=== PATIENT | female | born 1990 | race Caucasian/White ===

== ENCOUNTER 2016-10-12 22:17 | Emergency (ER) | payer MEDICAID ==
[2016-10-12] MEDS ORDERED: Clindamycin Phosphate 900 MG in Sodium Chloride 0.9% 100 ML IV ONE (22:26)
--- NOTE | 2016-10-12 22:30 | EDM.PDOC ---
ED HPI Trauma - General Chief Complaint: Upper Extremity Injury/Pain Stated Complaint: RT HAND Time Seen by Provider: 10/12/16 22:27 Source: Reports: Patient History Limitations: Reports: No limitations - History of Present Illness INITIAL COMMENTS - FREE TEXT/NARRATIVE: 3 days h/o progressive worsening right hand swelling & redness. states taken clindamycin before without problems Allergies/ADRs: Allergies erythromycin lactobionate [From Erythrocin] Allergy (Verified 12/26/15 13:28) Hives Penicillins Allergy (Verified 12/26/15 13:28) Rash Home Medications: Ambulatory Orders Albuterol [Ventolin HFA] 1 puff INH ASDIRECTED PRN 04/17/14 [Confirmed 12/26/15] ClonazePAM [KlonoPIN] 1 mg PO BID 08/03/15 [Confirmed 12/26/15] FLUoxetine [PROzac] 20 mg PO DAILY 08/03/15 [Confirmed 12/26/15] Norgestimate-Ethinyl Estradiol [Tri-Previfem Tablet] 1 each PO DAILY 12/26/15 [ Confirmed 12/26/15] Past Medical History - Past Health History Medical/Surgical History: Denies Medical/Surgical History HEENT History: Reports: None Cardiovascular History: Reports: None Respiratory History: Reports: None Gastrointestinal History: Reports: None Other Gastrointestinal History: Laparoscopy, May 1970 Genitourinary History: Reports: None [employer] T[employer]ER History: Reports: None 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 History: Reports: None Neurological History: Reports: None Psychiatric History: Reports: Anxiety, Depression Endocrine/Metabolic History: Reports: None Hematologic History: Reports: None Immunologic History: Reports: None Oncologic (Cancer) History: Reports: None Dermatologic History: Reports: None - Infectious Disease History Infectious Disease History: Reports: None - Past Surgical History Other HEENT Surgeries/Procedures: adenoids removed Other Female Surgeries/Procedures: ovarian cysts Social & Family History - Family History Family Medical History: Noncontributory - Tobacco Use Smoking Status *Q: Current Every Day Smoker Years of Tobacco use: 9 Packs/Tins Daily: 0.5 Used Tobacco, but Quit: No Month Tobacco Last Used: feb Second Hand Smoke Exposure: Yes - Recreational Drug Use Recreational Drug Use: No - Living Situation & Occupation Living situation: Reports: with family Occupation: employed Review of Systems - Review of Systems Review Of Systems: ROS reveals no pertinent complaints other than HPI. Trauma Exam - Physical Exam Exam: See Below Exam Limited By: No limitations General Appearance: Reports: alert, WD/WN, no apparent distress Head: Reports: atraumatic Ears: Reports: hearing grossly normal Throat/Mouth: Reports: Normal voice, No airway compromise Neck: Reports: non-tender, full range of motion Respiratory Exam: Reports: no respiratory distress Cardiovascular: Reports: regular rate, rhythm GI/Abdominal: Reports: soft, non tender Extremities: Reports: pain with movement, tenderness, other (right hand cellulitis, no lymphangitis) Neurologic: Reports: no motor/sensory deficits, alert, oriented x 3 Skin: Reports: Normal color, Warm/dry Course - Vital Signs Last Recorded V/S: Last Vital Signs Temp 36.1 C 10/12/16 22:21 Pulse 120 H 10/12/16 22:21 Resp 19 10/12/16 22:21 BP 133/90 10/12/16 22:21 Pulse Ox 99 10/12/16 22:21 - Orders/Labs/Meds Meds: Medications Discontinued Medications Generic Name Dose Route Start Last Admin Trade Name Chrissy PRN Reason Stop Dose Admin Clindamycin Phosphate 900 mg/ 106 mls @ 200 mls/hr 10/12/16 22:26 10/12/16 22 :35 Sodium Chloride IV 10/12/16 22:57 200 mls/hr ONETIME ONE Administration Morphine Sulfate 2 mg 10/12/16 22:38 10/12/16 22:45 Morphine IVPUSH 10/12/16 22:39 2 mg ONETIME ONE Administration Ondansetron HCl 4 mg 10/12/16 22:38 10/12/16 22:45 Zofran IV 10/12/16 22:39 4 mg ONETIME ONE Administration Departure - Departure Time of Disposition: 23:14 Disposition: Home, Self-Care 01 Condition: good Clinical Impression: Cellulitis of right hand Instructions: Cellulitis, Adult, [id number] Forms: ED Department Discharge Additional Instructions: 1) elevate hand as much as possible next 48 hours 2) try ice or heat to area 3) recheck if not significantly improve in 48 hours rx given: clindamycin 150mg qid x 40 vicodin 5/325mg tid prn x 12
[2016-10-12 22:34] VITALS: BP 133/90
[2016-10-12] MEDS ORDERED: Ondansetron 4 MG/2 ML SDV IV ONE (22:38)
[2016-10-12] MEDS ORDERED: Morphine 2 MG/ML Syringe IVPUSH ONE (22:38)
[2016-10-12] MEDS ORDERED: Acetaminophen/HYDROcodone 325-10 MG Tab PO ONE (23:15)
[2016-10-12] MEDS ORDERED: Acetaminophen/HYDROcodone 325-10 MG Tab ONE (23:15)
== END 2016-10-12 23:23 | disposition home or self-care (01) ==
LOC: DL.ED 22:17
DX: L03.113 Cellulitis of right upper limb (principal); F41.9 Anxiety disorder, unspecified; F32.9 Major depressive disorder, single episode, unspecified; F17.210 Nicotine dependence, cigarettes, uncomplicated; Z88.1 Allergy status to other antibiotic agents; Z88.0 Allergy status to penicillin; Z79.899 Other long term (current) drug therapy
CPT/HCPCS: 96365; 96375; 99283; J2270; J2405; J7050; A9270-GY; S0077

== ENCOUNTER 2016-10-17 12:58 | Inpatient (IN) | payer MEDICAID, SELFPAY ==
[2016-10-17 15:19] LABS: CHLORIDE,CL 97 mmol/L (101-111); SODIUM,NA 132 mmol/L (135-145)
[2016-10-17] MEDS ORDERED: Lidocaine 2% Jelly 5 ML Tube TOP ONE (15:45)
[2016-10-17] MEDS ORDERED: Lidocaine 1% 30 ML SDV INJECT ONE (15:45)
[2016-10-17] MEDS ORDERED: Ondansetron 4 MG/2 ML SDV IV ONE (15:46)
[2016-10-17] MEDS ORDERED: HYDROmorphone 1 MG/ML Syringe IVPUSH ONE ×2 (15:46→16:29)
--- NOTE | 2016-10-17 16:18 | EDM.PDOC ---
Scribed by Savi Lin 10/17/16 1835 for Lewis Villeda MD ED HPI Trauma - General Chief Complaint: Upper Extremity Injury/Pain Stated Complaint: TOP OF RT HAND, SWOLLEN Time Seen by Provider: 10/17/16 14:30 Source: Reports: Patient, RN, RN notes reviewed History Limitations: Reports: No limitations - History of Present Illness INITIAL COMMENTS - FREE TEXT/NARRATIVE: Patient presents for redness and swelling of her right hand. She states she was seen earlier last week here in the ER for the same issue and received IV and oral antibiotics. She was discharged on clindamycin however her condition had worsened with swelling and spreading redness. She states she is unable to make a fist. She does admit to fever yesterday with a tmax of 102. Due to worsening symptoms she came back for further evaluation. Pain/Injury Location: Reports: upper extremity, right Associated Symptoms: Reports: no other symptoms Allergies/ADRs: Allergies erythromycin lactobionate [From Erythrocin] Allergy (Verified 12/26/15 13:28) Hives Penicillins Allergy (Verified 12/26/15 13:28) Rash Home Medications: Ambulatory Orders Albuterol [Ventolin HFA] 1 puff INH ASDIRECTED PRN 04/17/14 [Confirmed 12/26/15] ClonazePAM [KlonoPIN] 1 mg PO BID 08/03/15 [Confirmed 12/26/15] FLUoxetine [PROzac] 20 mg PO DAILY 08/03/15 [Confirmed 12/26/15] Norgestimate-Ethinyl Estradiol [Tri-Previfem Tablet] 1 each PO DAILY 12/26/15 [ Confirmed 12/26/15] Past Medical History - Past Health History Medical/Surgical History: Denies Medical/Surgical History HEENT History: Reports: None Cardiovascular History: Reports: None Respiratory History: Reports: None Gastrointestinal History: Reports: None Other Gastrointestinal History: Laparoscopy, May 1970 Genitourinary History: Reports: None [employer]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: 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 History: Reports: None Neurological History: Reports: None Psychiatric History: Reports: Anxiety, Depression Endocrine/Metabolic History: Reports: None Hematologic History: Reports: None Immunologic History: Reports: None Oncologic (Cancer) History: Reports: None Dermatologic History: Reports: None - Infectious Disease History Infectious Disease History: Reports: None - Past Surgical History Other HEENT Surgeries/Procedures: adenoids removed GI Surgical History: Reports: Other (see below) Other GI Surgeries/Procedures: laparoscopy Other Female Surgeries/Procedures: ovarian cysts Social & Family History - Family History Family Medical History: Noncontributory - Tobacco Use Smoking Status *Q: Current Every Day Smoker Years of Tobacco use: 10 Packs/Tins Daily: 0.5 Used Tobacco, but Quit: No Month Tobacco Last Used: sept Second Hand Smoke Exposure: Yes - Caffeine Use Caffeine Use: Reports: Coffee, Soda, Tea - Recreational Drug Use Recreational Drug Use: No - Living Situation & Occupation Living situation: Reports: with family Occupation: employed Review of Systems - Review of Systems Review Of Systems: See Below Constitutional: Reports: fever Eyes: Reports: no symptoms Ears: Reports: no symptoms Nose: Reports: no symptoms Mouth/Throat: Reports: no symptoms Respiratory: Reports: No Symptoms Cardiovascular: Reports: no symptoms GI/Abdominal: Reports: No symptoms Genitourinary: Reports: no symptoms 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: Reports: hand pain, joint swelling Skin: Reports: no symptoms Neurological: Reports: No Symptoms Psychiatric: Reports: no symptoms Trauma Exam - Physical Exam Exam: See Below Exam Limited By: No limitations General Appearance: Reports: alert, WD/WN, no apparent distress Head: Reports: atraumatic, normocephalic Eyes: bilateral eye: normal inspection Nose: Reports: normal inspection, normal mucousa, no blood Throat/Mouth: Reports: Normal inspection, Normal lips, Normal teeth, Normal gums , Normal oropharynx, Normal voice, No airway compromise Neck: Reports: non-tender, full range of motion, normal alignment, normal inspection Respiratory Exam: Reports: no respiratory distress, lungs clear, normal breath sounds Cardiovascular: Reports: normal peripheral pulses, regular rate, rhythm, no edema, no gallop, no JVD, no murmur, no rub GI/Abdominal: Reports: normal bowel sounds, soft, non tender, no organomegaly, no distention, no abnormal bruit, no mass Back: Reports: full range of motion, normal inspection, non-tender Extremities: Reports: pain with movement, tenderness, other (right hand shows 4cm x 4cm mass with surrounding erythema throughout the dorsal surface of the hand with pain to palation) Skin: Reports: Other (see extremity exam) ED TRAUMA EXTREMITY PROCEDURES - I&D Site: left hand Skin prep: chlorhexidine (hibiciens) Local anesthesia: Lidocaine: 1% plain Local anesthetic volume: 5cc Area incised with: 11 blade Drainage: purulent, large amount Probed to break up loculations: Yes Packed with: 1/4 in. iodoform Sterile dressinx4(s) Complications: No Progress/Comments: Culture obtained and sent to [facility]. Course - Vital Signs Last Recorded V/S: Last Vital Signs Temp 37.4 C 10/17/16 15:44 Pulse 92 10/17/16 15:44 Resp 18 10/17/16 15:44 BP 120/69 10/17/16 15:44 Pulse Ox 100 10/17/16 15:44 - Orders/Labs/Meds Orders: Active Orders 24 hr Category Date Time Status CULTURE BLOOD [BC] Stat Lab 10/17/16 14:52 Received CULTURE BLOOD [BC] Stat Lab 10/17/16 15:02 Received CULTURE WOUND + SMEAR [] Stat Lab 10/17/16 16:05 Uncollected Vancomycin [Vancocin] 1 gm Med 10/17/16 15:22 Active Sodium Chloride 0.9% [Normal Saline] 250 ml IV ONETIME Blood Culture x2 Reflex Set [OM.PC] Stat Oth 10/17/16 14:35 Ordered Medication Orders Vancomycin HCl 1 gm/ Sodium (Chloride) 250 mls @ 167 mls/hr IV ONETIME ONE Stop: 10/17/16 16:51 Last Admin: 10/17/16 15:49 Dose: 167 mls/hr Labs: Laboratory Tests 10/17/16 10/17/16 10/17/16 Range/Units 14:52 14:52 14:52 WBC 15.0 H (5.0-10.0) 10^3/uL RBC 4.98 (4.2-5.4) 10^6/uL Hgb 15.6 (12.0-16.0) g/dL Hct 45.3 (37.0-47.0) % MCV 91.0 (80-100) fL MCH 31.3 (27.0-34.0) pg MCHC 34.4 (33.0-35.0) g/dL Plt Count 254 (150-450) 10^3/uL Neut % (Auto) 72.0 (42.2-75.2) % Lymph % (Auto) 19.4 L (20.5-50.1) % [place] % (Auto) 6.1 (2-8) % Eos % (Auto) 2.3 (1.0-3.0) % Baso % (Auto) 0.2 (0.0-1.0) % Add Manual Diff Yes Neutrophils % (Manual) 69 % Band Neutrophils % 1 % Lymphocytes % (Manual) 22 % Monocytes % (Manual) 5 % Eosinophils % (Manual) 3 % ESR (0-20) mm/hr Sodium 132 L (135-145) mmol/L Potassium 4.0 (3.6-5.0) mmol/L Chloride 97 L (101-111) mmol/L Carbon Dioxide 28.0 (21.0-31.0) mmol/L Anion Gap 11.0 BUN 12 (7-18) mg/dL Creatinine 0.6 (0.6-1.3) mg/dL Est Cr Clr Drug Dosing TNP Estimated GFR (MDRD) > 60 BUN/Creatinine Ratio 20.00 Glucose 86 (74-105) mg/dL Lactic Acid 1.0 (0.5-2.2) mmol/L Calcium 9.2 (8.4-10.2) mg/dl Total Bilirubin 0.6 (0.2-1.0) mg/dL AST 22 (10-42) IU/L ALT 47 (10-60) IU/L Alkaline Phosphatase 56 (42-121) IU/L C-Reactive Protein (0.0-1.3) mg/dL Total Protein 8.2 (6.7-8.2) g/dl Albumin 4.0 (3.2-5.5) g/dl Globulin 4.2 Albumin/Globulin Ratio 0.95 10/17/16 10/17/16 Range/Units 14:52 14:52 WBC (5.0-10.0) 10^3/uL RBC (4.2-5.4) 10^6/uL Hgb (12.0-16.0) g/dL Hct (37.0-47.0) % MCV (80-100) fL MCH (27.0-34.0) pg MCHC (33.0-35.0) g/dL Plt Count (150-450) 10^3/uL Neut % (Auto) (42.2-75.2) % Lymph % (Auto) (20.5-50.1) % [place] % (Auto) (2-8) % Eos % (Auto) (1.0-3.0) % Baso % (Auto) (0.0-1.0) % Add Manual Diff Neutrophils % (Manual) % Band Neutrophils % % Lymphocytes % (Manual) % Monocytes % (Manual) % Eosinophils % (Manual) % ESR 24 H (0-20) mm/hr Sodium (135-145) mmol/L Potassium (3.6-5.0) mmol/L Chloride (101-111) mmol/L Carbon Dioxide (21.0-31.0) mmol/L Anion Gap BUN (7-18) mg/dL Creatinine (0.6-1.3) mg/dL Est Cr Clr Drug Dosing Estimated GFR (MDRD) BUN/Creatinine Ratio Glucose (74-105) mg/dL Lactic Acid (0.5-2.2) mmol/L Calcium (8.4-10.2) mg/dl Total Bilirubin (0.2-1.0) mg/dL AST (10-42) IU/L ALT (10-60) IU/L Alkaline Phosphatase (42-121) IU/L C-Reactive Protein 1.3 (0.0-1.3) mg/dL Total Protein (6.7-8.2) g/dl Albumin (3.2-5.5) g/dl Globulin Albumin/Globulin Ratio Meds: Medications Generic Name Dose Route Start Last Admin Trade Name Freq PRN Reason Stop Dose Admin Vancomycin HCl 1 gm/ Sodium 250 mls @ 167 mls/hr 10/17/16 15:22 10/17/16 15: 49 Chloride IV 10/17/16 16:51 167 mls/hr ONETIME ONE Administration Discontinued Medications Generic Name Dose Route Start Last Admin Trade Name Freq PRN Reason Stop Dose Admin Hydromorphone HCl 1 mg 10/17/16 15:46 10/17/16 15:52 Dilaudid IVPUSH 10/17/16 15:47 1 mg ONETIME ONE Administration Lidocaine HCl 30 ml 10/17/16 15:45 10/17/16 15:53 Xylocaine-Mpf 1% INJECT 10/17/16 15:46 30 ml ONETIME ONE Administration Lidocaine HCl 5 ml 10/17/16 15:45 10/17/16 15:54 Xylocaine 2% Jelly TOP 10/17/16 15:46 5 ml ONETIME ONE Administration Ondansetron HCl 4 mg 10/17/16 15:46 10/17/16 15:53 Zofran IV 10/17/16 15:47 4 mg ONETIME ONE Administration Departure - Departure Time of Disposition: 16:14 ((admit to Dr. Nolasco)) Disposition: Admitted As Inpatient 64 Condition: fair Clinical Impression: Cellulitis and abscess of hand Forms: ED Department Discharge I have read and agree with the documentation that has been completed regarding this visit. By signing this record, I attest that the documentation was completed in my physical presence and is an accurate record of the encounter.
[2016-10-17] MEDS ORDERED: Albuterol 6.7 GM Inhaler INH PRN (16:47)
[2016-10-17] MEDS ORDERED: Ibuprofen 400 MG Tab PO PRN (16:48)
--- NOTE | 2016-10-17 17:01 | PCM.HP ---
H&P History of Present Illness - General Date of Service: 10/17/16 Admit Problem/Dx: Admission Diagnosis/Problem Admission Diagnosis/Problem Cellulitis 26-year-old lady presented with a right upper extremity and swelling, redness She has very little past medical history but She thinks that his a few weeks First noticed these symptoms about 10 days ago. Was in the emergency room about a week ago. Was diagnosis cellulitis and was given IV antibiotic in the emergency room and discharged on oral clindamycin. The redness pain and swelling in the past 2 days the prior to admission has been worsening. This has been associated with a fever up to 102. - History of Present Illness Onset of Symptoms: Reports: gradual Duration of Symptoms: Reports: Day(s): Right Upper Hand Pain Score (Numeric/FACES): 7 - Related Data Allergies/Adverse Reactions: Allergies Allergy/AdvReac Type Severity Reaction Status Date / Time erythromycin lactobionate Allergy Hives Verified 12/26/15 13:28 [From Erythrocin] Penicillins Allergy Rash Verified 12/26/15 13:28 Home Medications: Home Meds Albuterol [Ventolin HFA] 1 puff INH ASDIRECTED PRN 04/17/14 [History] ClonazePAM [KlonoPIN] 1 mg PO BID 08/03/15 [History] FLUoxetine [PROzac] 20 mg PO DAILY 08/03/15 [History] Norgestimate-Ethinyl Estradiol [Tri-Previfem Tablet] 1 each PO DAILY 12/26/15 [ History] Past Medical History - Past Health History Medical/Surgical History: Denies Medical/Surgical History HEENT History: Reports: None Cardiovascular History: Reports: None Respiratory History: Reports: None Gastrointestinal History: Reports: None Other Gastrointestinal History: Laparoscopy, May 1970 Genitourinary History: Reports: 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: 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 History: Reports: None Neurological History: Reports: None Psychiatric History: Reports: Anxiety, Depression Endocrine/Metabolic History: Reports: None Hematologic History: Reports: None Immunologic History: Reports: None Oncologic (Cancer) History: Reports: None Dermatologic History: Reports: None - Infectious Disease History Infectious Disease History: Reports: None - Past Surgical History Other HEENT Surgeries/Procedures: adenoids removed GI Surgical History: Reports: Other (see below) Other GI Surgeries/Procedures: laparoscopy Other Female Surgeries/Procedures: ovarian cysts Social & Family History - Family History Family Medical History: Noncontributory - Tobacco Use Smoking Status *Q: Current Every Day Smoker Years of Tobacco use: 10 Packs/Tins Daily: 0.5 Used Tobacco, but Quit: No Month Tobacco Last Used: sept Second Hand Smoke Exposure: Yes - Caffeine Use Caffeine Use: Reports: Coffee, Soda, Tea - Recreational Drug Use Recreational Drug Use: No - Living Situation & Occupation Living situation: Reports: with family Occupation: employed H&P Review of Systems - Review of Systems: Review Of Systems: See Below General: Reports: fever, chills Pulmonary: Denies: Shortness of Breath Cardiovascular: Denies: chest pain Gastrointestinal: Denies: Abdominal pain Psychiatric: Reports: other (trying to quit smoking) Exam - Exam Exam: See Below - Vital Signs Vital Signs: Last Vital Signs Temp 37.4 C 10/17/16 15:44 Pulse 92 10/17/16 15:44 Resp 18 10/17/16 15:44 BP 120/69 10/17/16 15:44 Pulse Ox 100 10/17/16 15:44 Weight: 73.936 kg - Exam General: alert, oriented Neck: supple Lungs: Clear to auscultation, Normal respiratory effort Abdomen: normal bowel sounds, soft, other (obese) Extremities: other (redness on the dorsum of the right hand) Skin: warm, other (right hand abscess with packing) Neuro Extensive - Mental Status: alert, oriented x3, normal mood/affect Psychiatric: alert, normal affect, normal mood - Patient Data Result Diagrams: 10/17/16 14:52 10/17/16 14:52 *Q Meaningful Use (ADM) - VTE *Q VTE Criteria *Q: - Stroke *Q Stroke Criteria *Q: - AMI *Q AMI Criteria *Q: - Problem List (1) SNOMED Code(s): 96410970 ICD Code: Z33.1 - STATE, INCIDENTAL Status: Acute Current Visit : Yes (2) Cellulitis and abscess of hand SNOMED Code(s): 895880269, 781704227 ICD Code: L03.119 - CELLULITIS OF UNSPECIFIED PART OF LIMB; L02.519 - CUTANEOUS ABSCESS OF UNSPECIFIED HAND Status: Acute Current Visit: Yes Problem List Initiated/Reviewed/Updated: Yes Orders Last 24hrs: Active Orders 24 hr Category Date Time Status Patient Status [ADT] Routine ADT 10/17/16 16:48 Ordered Oxygen Therapy [RC] PRN Care 10/17/16 16:48 Ordered Peripheral IV Care [RC] . DIRECTED Care 10/17/16 16:51 Ordered Up With Assistance [RC] ASDIRECTED Care 10/17/16 16:48 Ordered VTE/DVT Education [RC] PER UNIT ROUTINE Care 10/17/16 16:48 Ordered Vital Signs [RC] Q4H Care 10/17/16 16:48 Ordered Regular Diet [DIET] Diet 10/17/16 Dinner Ordered BASIC METABOLIC PANEL,BMP [CHEM] AM Lab 10/18/16 05:15 Ordered CBC WITH AUTO DIFF [HEME] AM Lab 10/18/16 05:15 Ordered Acetaminophen [Tylenol] Med 10/17/16 16:48 Ordered 650 mg PO Q4H PRN Albuterol [Proventil HFA] Med 10/17/16 16:47 Ordered 1 puff INH ASDIRECTED PRN Ibuprofen [Motrin] Med 10/17/16 16:48 Ordered 400 mg PO Q6H PRN Morphine Med 10/17/16 16:46 Ordered 1 mg IVPUSH Q4H PRN Sodium Chloride 0.9% [Saline Flush] Med 10/17/16 16:48 Ordered 10 ml FLUSH ASDIRECTED PRN Vancomycin Pharmacy to Dose [Pharmacy to Dose - Med 10/17/16 17:00 Ordered Vancomycin] 1 dose .XX ASDIRECTED Vancomycin Pharmacy to Dose [Pharmacy to Dose - Med 10/17/16 17:00 Ordered Vancomycin] 1 dose .XX ASDIRECTED Peripheral IV Insertion Adult [OM.PC] Routine Oth 10/17/16 16:48 Ordered Saline Lock Insert [OM.PC] Routine Oth 10/17/16 16:48 Ordered Resuscitation Status Routine Resus Stat 10/17/16 16:48 Ordered Medication Orders Acetaminophen (Tylenol) 650 mg PO Q4H PRN PRN Reason: Pain (Mild 1-3)/fever Albuterol (Proventil Hfa) 0 gm INH ASDIRECTED PRN PRN Reason: Dyspnea Ibuprofen (Motrin) 400 mg PO Q6H PRN PRN Reason: Pain (mild 1-3) Morphine Sulfate (Morphine) 1 mg IVPUSH Q4H PRN PRN Reason: severe pain Sodium Chloride (Saline Flush) 10 ml FLUSH ASDIRECTED PRN PRN Reason: Keep Vein Open Vancomycin HCl (Pharmacy To Dose - Vancomycin) 1 dose .XX ASDIRECTED [facility] Vancomycin HCl (Pharmacy To Dose - Vancomycin) 1 dose .XX ASDIRECTED [facility] Assessment/Plan Comment:: 1. cellulitis and abscess of the right hand The abscess has been opened up in the emergency room We'll pack the wound daily wound culture and blood culture is pending The patient failed out patient oral antibiotic therapy Will admit to the hospital and treat with IV vancomycin pain control will be with Tylenol, Motrin, IV morphine 2. Try to avoid harmful medications 3.smoking cessation was discussed 4. hyponatremia Mild Will follow 5. DVT prophylaxis will be mobilization and SCDs Discussed with the emergency room provider resident Dr. Awad
[2016-10-17] MEDS: Morphine 2 MG/ML Syringe IVPUSH PRN ×2 (18:13→22:33)
[2016-10-18] MEDS: Morphine 2 MG/ML Syringe IVPUSH PRN ×2 (02:52→09:46)
[2016-10-18 06:21] LABS: CHLORIDE,CL 101 mmol/L (101-111); SODIUM,NA 135 mmol/L (135-145)
[2016-10-18] MEDS: Sodium Chloride 0.9% 10 ML Syringe FLUSH PRN ×3 (08:03→16:11)
--- NOTE | 2016-10-18 10:10 | PCM.PN ---
- General Info Date of Service: 10/18/16 Subjective Update: continues to have moderate to severepain in the right hand better with pain medications (morphine), worse with touch - Review of Systems General: Denies: Fever Pulmonary: Denies: shortness of breath Cardiovascular: Denies: Chest Pain Gastrointestinal: Denies: Abdominal pain - Patient Data Vitals - most recent: Last Vital Signs Temp 36.4 C 10/18/16 07:00 Pulse 77 10/18/16 07:00 Resp 20 10/18/16 07:00 BP 107/63 10/18/16 07:00 Pulse Ox 99 10/18/16 07:00 Weight - most recent: 73.936 kg I&O - last 24 hours: Intake & Output 10/17/16 10/18/16 10/18/16 22:59 06:59 14:59 Intake Total 500 1019 252 Balance 500 1019 252 Lab Results last 24 hrs: Laboratory Results - last 24 hr 10/18/16 10/18/16 Range/Units 05:35 05:35 WBC 11.3 H (5.0-10.0) 10^3/uL RBC 4.34 (4.2-5.4) 10^6/uL Hgb 13.6 (12.0-16.0) g/dL Hct 40.1 (37.0-47.0) % MCV 92.4 (80-100) fL MCH 31.3 (27.0-34.0) pg MCHC 33.9 (33.0-35.0) g/dL Plt Count 206 (150-450) 10^3/uL Neut % (Auto) 60.9 (42.2-75.2) % Lymph % (Auto) 27.7 (20.5-50.1) % [place] % (Auto) 7.4 (2-8) % Eos % (Auto) 3.7 H (1.0-3.0) % Baso % (Auto) 0.3 (0.0-1.0) % Sodium 135 (135-145) mmol/L Potassium 4.1 (3.6-5.0) mmol/L Chloride 101 (101-111) mmol/L Carbon Dioxide 28.0 (21.0-31.0) mmol/L Anion Gap 10.1 BUN 10 (7-18) mg/dL Creatinine 0.6 (0.6-1.3) mg/dL Est Cr Clr Drug Dosing TNP Estimated GFR (MDRD) > 60 Glucose 87 (74-105) mg/dL Calcium 8.4 (8.4-10.2) mg/dl Med Orders - Current: Current Medications Acetaminophen (Tylenol) 650 mg PO Q4H PRN PRN Reason: Pain (Mild 1-3)/fever Albuterol (Proventil Hfa) 0 gm INH ASDIRECTED PRN PRN Reason: Dyspnea Vancomycin HCl 1 gm/ Sodium (Chloride) 250 mls @ 167 mls/hr IV Q8H [facility] Last Admin: 10/18/16 08:03 Dose: 167 mls/hr Morphine Sulfate (Morphine) 1 mg IVPUSH Q4H PRN PRN Reason: severe pain Last Admin: 10/18/16 09:46 Dose: 1 mg Sodium Chloride (Saline Flush) 10 ml FLUSH ASDIRECTED PRN PRN Reason: Keep Vein Open Last Admin: 10/18/16 09:49 Dose: 10 ml Vancomycin HCl (Pharmacy To Dose - Vancomycin) 1 dose .XX ASDIRECTED [facility] Discontinued Medications Hydromorphone HCl (Dilaudid) 1 mg IVPUSH ONETIME ONE Stop: 10/17/16 15:47 Last Admin: 10/17/16 15:52 Dose: 1 mg Hydromorphone HCl (Dilaudid) 1 mg IVPUSH ONETIME ONE Stop: 10/17/16 16:30 Last Admin: 10/17/16 16:34 Dose: 1 mg Vancomycin HCl 1 gm/ Sodium (Chloride) 250 mls @ 167 mls/hr IV ONETIME ONE Stop: 10/17/16 16:51 Last Admin: 10/17/16 15:49 Dose: 167 mls/hr Ibuprofen (Motrin) 400 mg PO Q6H PRN PRN Reason: Pain (mild 1-3) Last Admin: 10/17/16 18:14 Dose: 400 mg Lidocaine HCl (Xylocaine-Mpf 1%) 30 ml INJECT ONETIME ONE Stop: 10/17/16 15:46 Last Admin: 10/17/16 15:53 Dose: 30 ml Lidocaine HCl (Xylocaine 2% Jelly) 5 ml TOP ONETIME ONE Stop: 10/17/16 15:46 Last Admin: 10/17/16 15:54 Dose: 5 ml Ondansetron HCl (Zofran) 4 mg IV ONETIME ONE Stop: 10/17/16 15:47 Last Admin: 10/17/16 15:53 Dose: 4 mg Vancomycin HCl (Pharmacy To Dose - Vancomycin) 1 dose .XX ASDIRECTED [facility] - Exam General: alert, oriented Neck: supple Lungs: Clear to auscultation, Normal respiratory effort Cardiovascular: Regular Rate, Regular Rhythm Abdomen: bowel sounds present, soft, no tenderness, no distension Extremities: no edema Skin: other (right upper extremity dorsal surface with less erythema, abscess with packing) Psy/Mental Status: alert, normal affect, normal mood - Problem List & Annotations (1) SNOMED Code(s): 23057448 Code(s): Z33.1 - STATE, INCIDENTAL Status: Acute Current Visit: Yes Qualifiers: Weeks of gestation: less than 8 weeks Qualified Code(s): Z3A.01 - Less than 8 weeks gestation of (2) Cellulitis and abscess of hand SNOMED Code(s): 405640742, 744461450 Code(s): L03.119 - CELLULITIS OF UNSPECIFIED PART OF LIMB; L02.519 - CUTANEOUS ABSCESS OF UNSPECIFIED HAND Status: Acute Current Visit: Yes - Problem List Review Problem List Initiated/Reviewed/Updated: Yes - My Orders Last 24 Hours: My Active Orders 10/17/16 16:46 Morphine 1 mg IVPUSH Q4H PRN 10/17/16 16:47 Albuterol [Proventil HFA] 0 gm INH ASDIRECTED PRN 10/17/16 16:48 Patient Status [ADT] Routine Oxygen Therapy [RC] PRN Up With Assistance [RC] ASDIRECTED VTE/DVT Education [RC] PER UNIT ROUTINE Vital Signs [RC] Q4H Acetaminophen [Tylenol] 650 mg PO Q4H PRN Sodium Chloride 0.9% [Saline Flush] 10 ml FLUSH ASDIRECTED PRN Peripheral IV Insertion Adult [OM.PC] Routine Saline Lock Insert [OM.PC] Routine Resuscitation Status Routine 10/17/16 16:51 Peripheral IV Care [RC] 10/17/16 17:00 Vancomycin Pharmacy to Dose [Pharmacy to Dose - Vancomycin] 1 dose .XX ASDIRECTED 10/17/16 17:04 Communication Order [RC] 10/17/16 Dinner Regular Diet [DIET] - Plan Plan:: 1. cellulitis and abscess of the right hand The abscess has been opened up in the emergency room We'll pack the wound daily wound culture and blood culture is pending Gram stain showed Gram pos Cocci The patient failed outpatient oral antibiotic therapy with clindamycin continue to treat with IV vancomycin pain control will be with Tylenol, IV morphine, oxycodone 2. Try to avoid harmful medications 3.smoking cessation was discussed 4. hyponatremia Mild Will follow 5. DVT prophylaxis will be mobilization and SCDs
[2016-10-18] MEDS: Acetaminophen 325 MG Tab PO PRN ×2 (12:21→17:58)
[2016-10-18] MEDS: oxyCODONE 5 MG Tab PO PRN ×2 (15:07→21:20)
[2016-10-19] MEDS ORDERED: Vancomycin 250 MG in Sodium Chloride 0.9% 100 ML IV ONE (00:15)
[2016-10-19] MEDS: Acetaminophen 325 MG Tab PO PRN ×3 (01:02→22:48)
[2016-10-19] MEDS: Morphine 2 MG/ML Syringe IVPUSH PRN ×2 (01:31→18:40)
[2016-10-19] MEDS: Sodium Chloride 0.9% 10 ML Syringe FLUSH PRN ×5 (01:32→23:31)
[2016-10-19 07:13] LABS: CHLORIDE,CL 102 mmol/L (101-111); SODIUM,NA 135 mmol/L (135-145)
[2016-10-19] MEDS: oxyCODONE 5 MG Tab PO PRN ×3 (07:44→20:47)
--- NOTE | 2016-10-19 14:24 | PCM.PN ---
- General Info Date of Service: 10/19/16 Admission Dx/Problem (Free Text): Admission Diagnosis/Problem Admission Diagnosis/Problem right hand abscess and cellulitis Subjective Update: patient states that today she is feeling better. Her right hand swelling and redness improved. She still having hand pain. She denies fever or chills since yesterday. She denies nausea, vomiting, headache, chest pain, shortness of breath, swelling in the legs, abdomen pain pulmonary symptoms, or any other symptoms. She denies history of IV drug abuse but she is known for meth abuse. - Patient Data Vitals - most recent: Last Vital Signs Temp 36.2 C 10/19/16 11:46 Pulse 69 10/19/16 11:46 Resp 20 10/19/16 11:46 BP 99/54 L 10/19/16 11:46 Pulse Ox 100 10/19/16 11:46 Weight - most recent: 73.936 kg I&O - last 24 hours: Intake & Output 10/18/16 10/19/16 10/19/16 22:59 06:59 14:59 Intake Total 2010 251 Balance 2010 251 Lab Results last 24 hrs: Laboratory Results - last 24 hr 10/18/16 10/19/16 10/19/16 Range/Units 23:25 06:40 06:40 WBC 8.8 (5.0-10.0) 10^3/uL RBC 4.67 (4.2-5.4) 10^6/uL Hgb 14.6 (12.0-16.0) g/dL Hct 42.5 (37.0-47.0) % MCV 91.0 (80-100) fL MCH 31.3 (27.0-34.0) pg MCHC 34.4 (33.0-35.0) g/dL Plt Count 223 (150-450) 10^3/uL Neut % (Auto) 50.4 (42.2-75.2) % Lymph % (Auto) 37.1 (20.5-50.1) % [place] % (Auto) 6.6 (2-8) % Eos % (Auto) 5.6 H (1.0-3.0) % Baso % (Auto) 0.3 (0.0-1.0) % Add Manual Diff Yes Neutrophils % (Manual) 45 % Lymphocytes % (Manual) 46 % Monocytes % (Manual) 5 % Eosinophils % (Manual) 4 % Sodium 135 (135-145) mmol/L Potassium 4.0 (3.6-5.0) mmol/L Chloride 102 (101-111) mmol/L Carbon Dioxide 27.0 (21.0-31.0) mmol/L Anion Gap 10.0 BUN 9 (7-18) mg/dL Creatinine 0.6 (0.6-1.3) mg/dL Est Cr Clr Drug Dosing TNP Estimated GFR (MDRD) > 60 Glucose 87 (74-105) mg/dL Calcium 8.9 (8.4-10.2) mg/dl Vancomycin Trough 9.3 L (10-15) ug/ml Med Orders - Current: Current Medications Acetaminophen (Tylenol) 650 mg PO Q4H PRN PRN Reason: Pain (Mild 1-3)/fever Last Admin: 10/19/16 01:02 Dose: 650 mg Albuterol (Proventil Hfa) 0 gm INH ASDIRECTED PRN PRN Reason: Dyspnea Vancomycin HCl 1.25 gm/ Sodium (Chloride) 250 mls @ 166.667 mls/hr IV Q8H [facility] Last Admin: 10/19/16 08:05 Dose: 166.667 mls/hr Morphine Sulfate (Morphine) 1 mg IVPUSH Q4H PRN PRN Reason: severe pain Last Admin: 10/19/16 01:31 Dose: 1 mg Oxycodone HCl (Oxycodone) 5 mg PO Q6H PRN PRN Reason: severe pain Last Admin: 10/19/16 07:44 Dose: 5 mg Sodium Chloride (Saline Flush) 10 ml FLUSH ASDIRECTED PRN PRN Reason: Keep Vein Open Last Admin: 10/19/16 08:10 Dose: 10 ml Vancomycin HCl (Pharmacy To Dose - Vancomycin) 1 dose .XX ASDIRECTED [facility] Discontinued Medications Hydromorphone HCl (Dilaudid) 1 mg IVPUSH ONETIME ONE Stop: 10/17/16 15:47 Last Admin: 10/17/16 15:52 Dose: 1 mg Hydromorphone HCl (Dilaudid) 1 mg IVPUSH ONETIME ONE Stop: 10/17/16 16:30 Last Admin: 10/17/16 16:34 Dose: 1 mg Vancomycin HCl 1 gm/ Sodium (Chloride) 250 mls @ 167 mls/hr IV ONETIME ONE Stop: 10/17/16 16:51 Last Admin: 10/17/16 15:49 Dose: 167 mls/hr Vancomycin HCl 1 gm/ Sodium (Chloride) 250 mls @ 167 mls/hr IV Q8H [facility] Stop: 10/19/16 02:00 Last Admin: 10/19/16 01:30 Dose: 167 mls/hr Vancomycin HCl 250 mg/ Sodium (Chloride) 100 mls @ 100 mls/hr IV ONETIME ONE Stop: 10/19/16 01:14 Last Admin: 10/19/16 01:30 Dose: 100 mls/hr Ibuprofen (Motrin) 400 mg PO Q6H PRN PRN Reason: Pain (mild 1-3) Last Admin: 10/17/16 18:14 Dose: 400 mg Lidocaine HCl (Xylocaine-Mpf 1%) 30 ml INJECT ONETIME ONE Stop: 10/17/16 15:46 Last Admin: 10/17/16 15:53 Dose: 30 ml Lidocaine HCl (Xylocaine 2% Jelly) 5 ml TOP ONETIME ONE Stop: 10/17/16 15:46 Last Admin: 10/17/16 15:54 Dose: 5 ml Ondansetron HCl (Zofran) 4 mg IV ONETIME ONE Stop: 10/17/16 15:47 Last Admin: 10/17/16 15:53 Dose: 4 mg Vancomycin HCl (Pharmacy To Dose - Vancomycin) 1 dose .XX ASDIRECTED [facility] - Exam General: alert, oriented, cooperative, no acute distress HEENT: Pupils equal, Pupils reactive, EOMI, Mucous membr. moist/pink Neck: supple, trachea midline, no JVD Lungs: Clear to auscultation, Normal respiratory effort. No: Crackles, Rales, Rhonchi, Rub, Stridor, Wheezing Cardiovascular: Regular Rate, Regular Rhythm. No: Murmurs, Gallops, Rubs Abdomen: bowel sounds present, soft, no tenderness, no distension Extremities: normal pulses, no tenderness/swelling, no clubbing, no cyanosis Skin: other (right hand dorsal swelling and tenderness are appreciated. The dressing has some dry drainage on it.) Neurological: no new focal deficit, normal speech, normal tone Psy/Mental Status: alert, normal affect, normal mood. No: suicidal ideation, homicidal ideation, hallucinations - Problem List Review Problem List Initiated/Reviewed/Updated: Yes - My Orders Last 24 Hours: My Active Orders 10/19/16 14:15 Hand 2V Rt [CR] Routine 10/20/16 05:11 BASIC METABOLIC PANEL,BMP [CHEM] AM CBC WITH AUTO DIFF [HEME] AM CRP [C-REACTIVE PROTEIN] [CHEM] AM - Plan Plan:: 1. cellulitis and abscess of the right hand, status post I&D in the emergency room The patient failed outpatient oral antibiotic therapy with clindamycin Gram stain showed moderate gram positive cocci in chains and few gram negative rods -blood culture is pending -continue to repack the wound daily -continue vancomycin pain control will be with Tylenol, IV morphine, oxycodone 2. Try to avoid harmful medications she was advised to followup with primary care provider for care 3.tobacco abuse smoking cessation was discussed 4. mild hyponatremia, resolved 5.drug abuse She was counseled to stop and abusing drugs and seek outpatient counseling DVT prophylaxis will be mobilization and SCDs
--- NOTE | 2016-10-19 15:49 | CR ---
CLINICAL HISTORY: 26-year-old female with history of drug abuse and "abscess" right hand (one week). INTERPRETATION: No sign of foreign body or inflammatory periostitis. No bony erosions. Mild soft tissue swelling dorsum of the hand. No sign of right hand or wrist fracture/dislocation.
[2016-10-19] MEDS: Cephalexin 500 MG Cap PO SCH ×2 (17:19→23:30)
[2016-10-20] MEDS: Morphine 2 MG/ML Syringe IVPUSH PRN (00:11)
[2016-10-20] MEDS: Cephalexin 500 MG Cap PO SCH ×2 (06:37→13:04)
[2016-10-20] MEDS: oxyCODONE 5 MG Tab PO PRN (06:41)
[2016-10-20 08:18] LABS: CHLORIDE,CL 99 mmol/L (101-111); SODIUM,NA 133 mmol/L (135-145)
[2016-10-20] MEDS: Sodium Chloride 0.9% 10 ML Syringe FLUSH PRN (08:56)
--- NOTE | 2016-10-20 09:34 | PCM.DCSUM1 ---
Discharge Summary - Hospital Course Free Text/Narrative:: 26-year-old female with history of her meth abuse presented with a right hand swelling, redness, and pain. she admitted being and she thinks that it has been few weeks since she became . First noticed the hand symptoms about 10 days prior to admission. she was in the emergency room about attending ago and diagnosed with cellulitis and given IV antibiotic in the emergency room and discharged on oral clindamycin. The redness, pain and swelling got worse so she came back to the emergency room. she reported having fever up to 102. on admission her WBC were 15 without left shift.lactic acid was normal. CRP was normal. in the emergency room she had I&D and wound culture was sent. She was started on IV vancomycin and had daily packing and dressing change. And gradually improved. X-ray of the hand was done and did not show bone infection per radiology report. Blood culture had no gross for 2 days. Gram stain showed moderate gram-positive cocci in chains and a few gram-negative rods. However wound culture showed heavy growth gram-positive rods resembling Corynebacterium and viridans strep and no farther work up done. I counseled this and wishes to see specialist Dr. Jorge and recommended stopping vancomycin and starting oral Keflex. He will follow up with patient. She was advised to followup with primary care provider for check and for her hand infection as soon as possible.she was also counseled about stopping illicit drugs usage and educated about the effect on her . patient verbalized understanding and agreed with the plan - Discharge Data Discharge Date: 10/20/16 Discharge Disposition: Home, Self-Care 01 Condition: Good - Discharge Diagnosis/Problem(s) (1) Cellulitis and abscess of hand SNOMED Code(s): 914922889, 754932881 ICD Code: L03.119 - CELLULITIS OF UNSPECIFIED PART OF LIMB; L02.519 - CUTANEOUS ABSCESS OF UNSPECIFIED HAND Status: Acute Current Visit: Yes (2) SNOMED Code(s): 96265391 ICD Code: Z33.1 - STATE, INCIDENTAL Status: Acute Current Visit : Yes Qualifiers: Weeks of gestation: less than 8 weeks Qualified Code(s): Z3A.01 - Less than 8 weeks gestation of - Patient Instructions Diet: Heart Healthy Diet Activity: As Tolerated Wound/Incision Care: Keep Operative Site/Wound Site Clean and Dry, Change Dressing Daily Notify Provider of: Fever, Swelling and Redness, Drainage, Nausea and/or Vomiting - Discharge Plan Prescriptions/Med Rec: Cephalexin [IJD: Cephalexin] 500 mg PO Q6HR 10 Days Home Medications: Home Meds Albuterol [Ventolin HFA] 1 puff INH Q4HR PRN 04/17/14 [History] FLUoxetine [PROzac] 40 mg PO DAILY 08/03/15 [History] Acetaminophen 650 mg PO Q6H 10/17/16 [History] Vits #93/Iron Fum/FA [ Formula Tablet] 1 each PO DAILY [History] Cephalexin [IJD: Cephalexin] 500 mg PO Q6HR 10 Days 10/20/16 [Rx] Forms: ED Department Discharge Referrals: PCP,None [Primary Care Provider] - 10/22/16 - General Info Date of Service: 10/20/16 Admission Dx/Problem (Free Text: Admission Diagnosis/Problem Admission Diagnosis/Problem right hand abscess and cellulitis - Review of Systems General: Reports: No Symptoms HEENT: Reports: no symptoms Pulmonary: Reports: no symptoms Cardiovascular: Reports: No Symptoms Gastrointestinal: Reports: No symptoms Genitourinary: Reports: no symptoms 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: Reports: no symptoms Skin: Reports: no symptoms (except right hand swelling, redness, pain which markedly improved) Neurological: Reports: No Symptoms Psychiatric: Reports: no symptoms - Patient Data Vitals - Most Recent: Last Vital Signs Temp 36.6 C 10/20/16 07:46 Pulse 72 10/20/16 00:00 Resp 18 10/20/16 07:46 BP 97/61 10/20/16 07:46 Pulse Ox 99 10/20/16 07:46 Weight - Most Recent: 73.936 kg I&O - Last 24 hours: Intake & Output 10/19/16 10/20/16 10/20/16 22:59 06:59 14:59 Intake Total 5200 850 Balance 5200 850 Lab Results - Last 24 hrs: Laboratory Results - last 24 hr 10/20/16 10/20/16 10/20/16 Range/Units 07:45 07:45 07:45 WBC 10.0 (5.0-10.0) 10^3/uL RBC 4.60 (4.2-5.4) 10^6/uL Hgb 14.4 (12.0-16.0) g/dL Hct 41.7 (37.0-47.0) % MCV 90.7 (80-100) fL MCH 31.3 (27.0-34.0) pg MCHC 34.5 (33.0-35.0) g/dL Plt Count 249 (150-450) 10^3/uL Neut % (Auto) 61.3 (42.2-75.2) % Lymph % (Auto) 27.3 (20.5-50.1) % [place] % (Auto) 6.8 (2-8) % Eos % (Auto) 4.2 H (1.0-3.0) % Baso % (Auto) 0.4 (0.0-1.0) % Add Manual Diff Yes Neutrophils % (Manual) 63 % Lymphocytes % (Manual) 30 % Monocytes % (Manual) 6 % Eosinophils % (Manual) 1 % Sodium 133 L (135-145) mmol/L Potassium 4.1 (3.6-5.0) mmol/L Chloride 99 L (101-111) mmol/L Carbon Dioxide 26.0 (21.0-31.0) mmol/L Anion Gap 12.1 BUN 12 (7-18) mg/dL Creatinine 0.6 (0.6-1.3) mg/dL Est Cr Clr Drug Dosing TNP Estimated GFR (MDRD) > 60 Glucose 89 (74-105) mg/dL Calcium 9.0 (8.4-10.2) mg/dl C-Reactive Protein (0.0-1.3) mg/dL Vancomycin Trough 13.1 (10-15) ug/ml 10/20/16 Range/Units 07:45 WBC (5.0-10.0) 10^3/uL RBC (4.2-5.4) 10^6/uL Hgb (12.0-16.0) g/dL Hct (37.0-47.0) % MCV (80-100) fL MCH (27.0-34.0) pg MCHC (33.0-35.0) g/dL Plt Count (150-450) 10^3/uL Neut % (Auto) (42.2-75.2) % Lymph % (Auto) (20.5-50.1) % [place] % (Auto) (2-8) % Eos % (Auto) (1.0-3.0) % Baso % (Auto) (0.0-1.0) % Add Manual Diff Neutrophils % (Manual) % Lymphocytes % (Manual) % Monocytes % (Manual) % Eosinophils % (Manual) % Sodium (135-145) mmol/L Potassium (3.6-5.0) mmol/L Chloride (101-111) mmol/L Carbon Dioxide (21.0-31.0) mmol/L Anion Gap BUN (7-18) mg/dL Creatinine (0.6-1.3) mg/dL Est Cr Clr Drug Dosing Estimated GFR (MDRD) Glucose (74-105) mg/dL Calcium (8.4-10.2) mg/dl C-Reactive Protein 0.9 (0.0-1.3) mg/dL Vancomycin Trough (10-15) ug/ml Med Orders - Current: Current Medications Acetaminophen (Tylenol) 650 mg PO Q4H PRN PRN Reason: Pain (Mild 1-3)/fever Last Admin: 10/19/16 22:48 Dose: 650 mg Albuterol (Proventil Hfa) 0 gm INH ASDIRECTED PRN PRN Reason: Dyspnea Cephalexin (Keflex) 500 mg PO Q6HR [facility] Last Admin: 10/20/16 06:37 Dose: 500 mg Vancomycin HCl 1.25 gm/ Sodium (Chloride) 250 mls @ 166.667 mls/hr IV Q8H [facility] Last Admin: 10/20/16 08:57 Dose: 166.667 mls/hr Morphine Sulfate (Morphine) 1 mg IVPUSH Q4H PRN PRN Reason: severe pain Last Admin: 10/20/16 00:11 Dose: 1 mg Oxycodone HCl (Oxycodone) 5 mg PO Q6H PRN PRN Reason: severe pain Last Admin: 10/20/16 06:41 Dose: 5 mg Sodium Chloride (Saline Flush) 10 ml FLUSH ASDIRECTED PRN PRN Reason: Keep Vein Open Last Admin: 10/20/16 08:56 Dose: 10 ml Vancomycin HCl (Pharmacy To Dose - Vancomycin) 1 dose .XX ASDIRECTED [facility] Discontinued Medications Hydromorphone HCl (Dilaudid) 1 mg IVPUSH ONETIME ONE Stop: 10/17/16 15:47 Last Admin: 10/17/16 15:52 Dose: 1 mg Hydromorphone HCl (Dilaudid) 1 mg IVPUSH ONETIME ONE Stop: 10/17/16 16:30 Last Admin: 10/17/16 16:34 Dose: 1 mg Vancomycin HCl 1 gm/ Sodium (Chloride) 250 mls @ 167 mls/hr IV ONETIME ONE Stop: 10/17/16 16:51 Last Admin: 10/17/16 15:49 Dose: 167 mls/hr Vancomycin HCl 1 gm/ Sodium (Chloride) 250 mls @ 167 mls/hr IV Q8H [facility] Stop: 10/19/16 02:00 Last Admin: 10/19/16 01:30 Dose: 167 mls/hr Vancomycin HCl 250 mg/ Sodium (Chloride) 100 mls @ 100 mls/hr IV ONETIME ONE Stop: 10/19/16 01:14 Last Admin: 10/19/16 01:30 Dose: 100 mls/hr Ibuprofen (Motrin) 400 mg PO Q6H PRN PRN Reason: Pain (mild 1-3) Last Admin: 10/17/16 18:14 Dose: 400 mg Lidocaine HCl (Xylocaine-Mpf 1%) 30 ml INJECT ONETIME ONE Stop: 10/17/16 15:46 Last Admin: 10/17/16 15:53 Dose: 30 ml Lidocaine HCl (Xylocaine 2% Jelly) 5 ml TOP ONETIME ONE Stop: 10/17/16 15:46 Last Admin: 10/17/16 15:54 Dose: 5 ml Ondansetron HCl (Zofran) 4 mg IV ONETIME ONE Stop: 10/17/16 15:47 Last Admin: 10/17/16 15:53 Dose: 4 mg Vancomycin HCl (Pharmacy To Dose - Vancomycin) 1 dose .XX ASDIRECTED [facility] - Exam General: Reports: alert, oriented, cooperative, no acute distress. Denies: mild distress, moderate distress, severe distress, sedated, lethargic HEENT: Reports: Pupils equal, Pupils reactive, EOMI, Mucous membr. moist/pink Neck: Reports: supple, trachea midline, no JVD Lungs: Reports: Clear to auscultation, Normal respiratory effort Cardiovascular: Reports: Regular Rate, Regular Rhythm Abdomen: Reports: bowel sounds present, soft, no tenderness, no distension (Female) Exam: Deferred Rectal (Female) Exam: Deferred Back Exam: Reports: normal inspection, full range of motion Extremities: Reports: no edema, normal pulses, no tenderness/swelling, no clubbing, no cyanosis, no calf tenderness Skin: Denies: rash, ecchymosis Wound/Incisions: Reports: healing well (swelling and redness of right dorsal hand is markedly improved), erythema improving Neurological: Reports: no new focal deficit, normal gait, normal speech, normal tone Psy/Mental Status: Reports: alert, normal affect, normal mood. Denies: anxious , depressed, agitated, suicidal ideation, homicidal ideation, hallucinations, withdrawal symptoms Discharge Operative/Procedures - Procedures Performed I&D Site: left hand *Q Meaningful Use (DIS) - VTE *Q VTE Criteria *Q: - Stroke *Q Stroke Criteria *Q: - AMI *Q AMI Criteria *Q:
[2016-10-20 11:50] VITALS: BP 104/56
== END 2016-10-20 13:00 | disposition home or self-care (01) | DRG 603 ==
LOC: DL.ED 12:58 → DL.MS 16:37 → EEVIPCON 16:37
PROVIDERS: ADMIT Internal Medicine; ATTEND Internal Medicine
PROC: 0J9J3ZX Drainage of Right Hand Subcutaneous Tissue and Fascia, Percutaneous Approach, Diagnostic (ICD-10-PCS; principal; 2016-10-17)
DX: L03.113 Cellulitis of right upper limb (principal); L02.511 Cutaneous abscess of right hand; E87.1 Hypo-osmolality and hyponatremia; Z33.1 Pregnant state, incidental; F41.8 Other specified anxiety disorders; F17.210 Nicotine dependence, cigarettes, uncomplicated; Z86.59 Personal history of other mental and behavioral disorders
CPT/HCPCS: 36415; 80053; 83605; 85025; 85651; 86140; 87040 ×2; 87070; 87205; 96374; 96375; 99284; J1170 ×2; J2405; J3370; J7050; 73120-RT; 80048; 80202; A9270-GY; J2270

== ENCOUNTER 2017-02-15 23:10 | Emergency (ER) | payer MEDICAID ==
[2017-02-15 23:30] VITALS: BP 123/73
--- NOTE | 2017-02-15 23:43 | EDM.PDOC ---
ED HPI GENERAL MEDICAL PROBLEM - General Chief Complaint: ENT Problem Stated Complaint: ABCESS TOOTH-22 WEEKS PREG Time Seen by Provider: 02/15/17 23:36 Source of Information: Reports: Patient History Limitations: Reports: No Limitations - History of Present Illness INITIAL COMMENTS - FREE TEXT/NARRATIVE: C/O pain right lower incisor with abscess. Patient states she has been on multiple courses of antibiotics for same. Is 22 weeks and ahs been told by dentist that they did not want to remove tooth while . Notes abscess fills up at leat one time daily and will pop and drain, usually at night. Low grade fevers intermittently. Has been on Clidamycin but sx not improving. Last dose of RX tonight. 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 Right Lower Tooth/Teeth Pain Score (Numeric/FACES): 7 - Related Data Allergies Allergy/AdvReac Type Severity Reaction Status Date / Time erythromycin lactobionate Allergy Hives Verified 02/15/17 23:29 [From Erythrocin] Penicillins Allergy Rash Verified 02/15/17 23:29 Home Meds: Home Meds Albuterol [Ventolin HFA] 1 puff INH Q4HR PRN 04/17/14 [History] FLUoxetine [PROzac] 40 mg PO DAILY 08/03/15 [History] Acetaminophen 650 mg PO Q6H 10/17/16 [History] Vits #93/Iron Fum/FA [ Formula Tablet] 1 each PO DAILY [History] Cephalexin [IJD: Cephalexin] 500 mg PO Q6HR 10 Days capsule 10/20/16 [Rx] Past Medical History - Past Health History Medical/Surgical History: Denies Medical/Surgical History HEENT History: Reports: None Cardiovascular History: Reports: None Respiratory History: Reports: None Gastrointestinal History: Reports: None Other Gastrointestinal History: Laparoscopy, May 1970 Genitourinary History: Reports: None 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: 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 History: Reports: None Neurological History: Reports: None Psychiatric History: Reports: Anxiety, Depression Endocrine/Metabolic History: Reports: None Hematologic History: Reports: None Immunologic History: Reports: None Oncologic (Cancer) History: Reports: None Dermatologic History: Reports: None - Infectious Disease History Infectious Disease History: Reports: None - Past Surgical History HEENT Surgical History: Reports: Tonsillectomy GI Surgical History: Reports: Other (See Below) Other Female Surgeries/Procedures: ovarian cysts Neurological Surgical History: Reports: None Social & Family History - Family History Family Medical History: Noncontributory - Tobacco Use Smoking Status *Q: Current Some Day Smoker Years of Tobacco use: 10 Packs/Tins Daily: 2 Used Tobacco, but Quit: No Month Tobacco Last Used: sept Second Hand Smoke Exposure: Yes - Caffeine Use Caffeine Use: Reports: Coffee - Recreational Drug Use Recreational Drug Use: No - Living Situation & Occupation Living situation: Reports: with Family Occupation: Employed ED ROS ENT - Review of Systems Review Of Systems: ROS reveals no pertinent complaints other than HPI. ED EXAM, ENT - Physical Exam Exam: See Below Exam Limited By: No Limitations General Appearance: Alert, Mild Distress Eye Exam: Bilateral Eye: EOMI Ears: Normal External Exam Nose: Normal Inspection Mouth/Throat: Dental Abcess (ht lower incisor decayed abcess anterior and posterior to tooth, tender) Neck: Lymphadenopathy (R) Respiratory/Chest: No Respiratory Distress, Lungs Clear Cardiovascular: Normal Peripheral Pulses, Regular Rate, Rhythm. No: No Murmur GI/Abdominal: Soft (Female) Exam: Other (FHT present) Extremities: Normal Inspection Neurological: Alert, Oriented Psychiatric: Normal Affect Skin: Warm, Dry, Intact, Normal Color Course - Vital Signs Last Recorded V/S: Last Vital Signs Temp 97.2 F 02/15/17 23:13 Pulse 84 02/15/17 23:13 Resp 20 02/15/17 23:13 BP 123/73 02/15/17 23:13 Pulse Ox 100 02/15/17 23:13 - Orders/Labs/Meds Meds: Medications Discontinued Medications Generic Name Dose Route Start Last Admin Trade Name Chrissy PRN Reason Stop Dose Admin Cephalexin Confirm 02/15/17 23:48 Keflex Administered 02/15/17 23:49 Dose 1,000 mg .ROUTE .STK-MED ONE Lidocaine HCl Confirm 02/15/17 23:48 Xylocaine 2% Viscous Administered 02/15/17 23:49 Dose 15 ml .ROUTE .STK-MED ONE Departure - Departure Time of Disposition: 23:49 Disposition: Home, Self-Care 01 Condition: Fair Clinical Impression: Dental abscess, Dental caries - Discharge Information Instructions: Dental Abscess Forms: ED Department Discharge Additional Instructions: viscous lidocaine- apply thin layer to affected area up to 4 times daily with severe pain not relieved with tylenol keflex 500mg one three times daily for one week follow up with dentist and PCP If area is draining attempt to swab drainage with provided culture swab and bring to PCP
[2017-02-15] MEDS ORDERED: Lidocaine 2% Viscous Solution 15 ML Cup ONE (23:48)
[2017-02-15] MEDS ORDERED: Lidocaine 2% Viscous Solution 15 ML Cup PO ONE (23:48)
[2017-02-15] MEDS ORDERED: Cephalexin 500 MG Cap PO ONE (23:48)
[2017-02-15] MEDS ORDERED: Cephalexin 500 MG Cap ONE (23:48)
== END 2017-02-15 23:56 | disposition home or self-care (01) ==
LOC: DL.ED 23:10
DX: O99.612 Diseases of the digestive system complicating pregnancy, second trimester (principal); K04.7 Periapical abscess without sinus; K02.9 Dental caries, unspecified; O99.342 Other mental disorders complicating pregnancy, second trimester; F32.9 Major depressive disorder, single episode, unspecified; O99.332 Smoking (tobacco) complicating pregnancy, second trimester; F17.210 Nicotine dependence, cigarettes, uncomplicated; Z88.0 Allergy status to penicillin; Z88.1 Allergy status to other antibiotic agents; Z79.899 Other long term (current) drug therapy; Z3A.22 22 weeks gestation of pregnancy
CPT/HCPCS: 99282; A9270-GY

== ENCOUNTER 2017-06-04 07:37 | Inpatient (IN) | payer MEDICAID, SELFPAY ==
[2017-06-04] MEDS ORDERED: Methylergonovine 0.2 MG/1 ML Amp IM PRN (08:30)
[2017-06-04] MEDS ORDERED: fentaNYL 100 MCG/2 ML SDV IVPUSH PRN (08:30)
[2017-06-04] MEDS ORDERED: Nalbuphine 20 MG/1 ML Amp IVPUSH PRN (08:30)
[2017-06-04] MEDS ORDERED: Oxytocin/Normal Saline 30 UNIT/500 ML BAG IV SCH (08:30)
[2017-06-04] MEDS ORDERED: Lactated Ringers 1,000 ML IV SCH (08:30)
[2017-06-04] MEDS ORDERED: Sodium Chloride 0.9% 10 ML Syringe FLUSH PRN ×2 (08:30→14:55)
[2017-06-04] MEDS ORDERED: Ondansetron 4 MG/2 ML SDV IV PRN (08:30)
[2017-06-04] MEDS ORDERED: Misoprostol 400 MCG (4 X 100 MCG TAB) RECTAL PRN (08:30)
[2017-06-04] MEDS ORDERED: Lactated Ringers 500 ML IV ONE (08:30)
[2017-06-04] MEDS ORDERED: Carboprost Tromethamine 250 MCG/1 ML Amp IM PRN (08:30)
[2017-06-04] MEDS ORDERED: Lidocaine 1% 30 ML SDV INJECT PRN (08:30)
[2017-06-04] MEDS ORDERED: fentaNYL 100 MCG/2 ML SDV ITHECAL ONE (08:32)
--- NOTE | 2017-06-04 08:34 | PCM.LDHP ---
L&D History of Present Illness - General Date of Service: 06/04/17 Admit Problem/Dx: Patient Status Order with Admit Dx/Problem 06/04/17 08:30 Patient Status [ADT] Routine Admission Diagnosis/Problem Admission Diagnosis/Problem Source of Information: Patient History Limitations: Reports: No Limitations - History of Present Illness Introduction:: 26-year-old at 38w3d presents to L&D with gross rupture of membranes. She is unsure exactly when her water broke. She states she noticed some increased "wetness" around 1830 last night. This was noticed a couple of times over night. Around 0700 today, she had a large gush of fluid. Baby has been active. She did notice a small amount of blood mixed with the fluid. No headaches or vision changes. - Related Data Allergies/Adverse Reactions: Allergies Allergy/AdvReac Type Severity Reaction Status Date / Time erythromycin lactobionate Allergy Hives Verified 02/15/17 23:29 [From Erythrocin] Penicillins Allergy Rash Verified 02/15/17 23:29 Home Medications: Home Meds RX: Albuterol [Ventolin HFA] 1 puff INH Q4HR PRN 04/17/14 [History] RX: FLUoxetine [PROzac] 40 mg PO DAILY 08/03/15 [History] RX: Acetaminophen 650 mg PO Q6H 10/17/16 [History] RX: Vits #93/Iron Fum/FA [ Formula Tablet] 1 each PO DAILY 11/28 [History] RX: Cephalexin [IJD: Cephalexin] 500 mg PO Q6HR 10 Days capsule 10/20/16 [Rx] Past Medical History - Past Health History Medical/Surgical History: Denies Medical/Surgical History HEENT History: Reports: None Cardiovascular History: Reports: None Respiratory History: Reports: None Gastrointestinal History: Reports: None Other Gastrointestinal History: Laparoscopy, May 1970 Genitourinary History: Reports: None 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: 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 History: Reports: None Neurological History: Reports: None Psychiatric History: Reports: Anxiety, Depression Endocrine/Metabolic History: Reports: None Hematologic History: Reports: None Immunologic History: Reports: None Oncologic (Cancer) History: Reports: None Dermatologic History: Reports: None - Infectious Disease History Infectious Disease History: Reports: None - Past Surgical History HEENT Surgical History: Reports: Tonsillectomy GI Surgical History: Reports: Other (See Below) Other Female Surgeries/Procedures: ovarian cysts Neurological Surgical History: Reports: None Social & Family History - Family History Family Medical History: Noncontributory - Tobacco Use Smoking Status *Q: Current Some Day Smoker Years of Tobacco use: 10 Packs/Tins Daily: 2 Used Tobacco, but Quit: No Month Tobacco Last Used: sept Second Hand Smoke Exposure: Yes - Caffeine Use Caffeine Use: Reports: Coffee - Recreational Drug Use Recreational Drug Use: No - Living Situation & Occupation Living situation: Reports: with Family Occupation: Employed H&P Review of Systems - Review of Systems: Review Of Systems: See Below General: Reports: No Symptoms HEENT: Reports: No Symptoms Pulmonary: Reports: No Symptoms Cardiovascular: Reports: No Symptoms Gastrointestinal: Reports: No Symptoms Genitourinary: Reports: No Symptoms 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: Reports: Back Pain Skin: Reports: No Symptoms L&D Exam - Exam Exam: See Below - OB Specific Contraction Intensity: Moderate Movement: Active Heart Tones: Present Heart Tones per Min: 135 Heart Rate (FHR) Variability: Moderate (6-25 bmp) Presentation: Vertex - Solis Score Solis Score Cervix Position: Midposition Solis Score Consistency: Soft Solis Score Dilation: 3-4 cm (per RN) - Exam General: Alert, Oriented Lungs: Clear to Auscultation, Normal Respiratory Effort Cardiovascular: Regular Rate, Regular Rhythm. No: Systolic Murmur, Diastolic Murmur Extremities: No Pedal Edema Skin: Warm, Dry, Intact - Patient Data Result Diagrams: 06/04/17 09:05 - Problem List (1) care in third trimester SNOMED Code(s): 928768762, 60584955, 710481831, 374287755 ICD Code: Z34.93 - ENCNTR FOR SUPRVSN OF NORMAL PREG, UNSP, THIRD TRIMESTER Status: Acute Current Visit: Yes (2) Viral hepatitis complicating SNOMED Code(s): 954967440 ICD Code: O98.419 - VIRAL HEPATITIS COMPLICATING , UNSP TRIMESTER Status: Acute Current Visit: Yes (3) Not immune to rubella SNOMED Code(s): 353353674 ICD Code: Z78.9 - OTHER SPECIFIED HEALTH STATUS Status: Acute Current Visit: Yes Problem List Initiated/Reviewed/Updated: Yes Orders Last 24hrs: Active Orders 24 hr Category Date Time Status Patient Status [ADT] Routine ADT 06/04/17 08:30 Ordered Communication Order [RC] ASDIRECTED Care 06/04/17 08:30 Ordered Heart Tones [RC] PER UNIT ROUTINE Care 06/04/17 08:30 Ordered Notify Provider Vital Signs OB [RC] ASDIRECTED Care 06/04/17 08:30 Ordered Notify Provider [RC] PRN Care 06/04/17 08:30 Ordered Pump Management, Intrathecal [RC] ASDIRECTED Care 06/04/17 08:30 Ordered Up ad Makenzie [RC] ASDIRECTED Care 06/04/17 08:30 Ordered Vital Signs [RC] PER UNIT ROUTINE Care 06/04/17 08:30 Ordered Clear Liquid Diet [DIET] Diet 06/04/17 Breakfast Ordered CBC W/O DIFF,HEMOGRAM [HEME] Routine Lab 06/04/17 08:30 Ordered DRUG SCREEN URINE BIORAD [URCHEM] Urgent Lab 06/04/17 08:30 Uncollected Acetaminophen [Tylenol] Med 06/04/17 08:30 Ordered 650 mg PO Q4H PRN Carboprost Tromethamine [Hemabate DS] Med 06/04/17 08:30 Ordered 250 mcg IM ASDIRECTED PRN Lactated Ringers @ 125 MLS/HR(1000ml) Med 06/04/17 08:30 Ordered Lactated Ringers [Ringers, Lactated] 1,000 ml IV ASDIRECTED Lactated Ringers [Ringers, Lactated] 500 ml Med 06/04/17 08:30 Ordered IV .BOLUS Lidocaine 1% [Xylocaine-MPF 1%] Med 06/04/17 08:30 Ordered 10 ml INJECT ASDIRECTED PRN Methylergonovine [Methergine] Med 06/04/17 08:30 Ordered 0.2 mg IM ASDIRECTED PRN Misoprostol [Cytotec] Med 06/04/17 08:30 Ordered 800 mcg RECTAL ASDIRECTED PRN Nalbuphine [Nubain] Med 06/04/17 08:30 Ordered 10 mg IVPUSH Q3H PRN Ondansetron [Zofran] Med 06/04/17 08:30 Ordered 4 mg IV Q4H PRN Oxytocin 30 Units in NS @ 2 MUNITS/MIN(500ml) Med 06/04/17 08:30 Ordered Oxytocin/Normal Saline [Pitocin in NS 30 UNIT/500 ML] 30 unit in 500 ml IV TITRATE Sodium Chloride 0.9% [Saline Flush] Med 06/04/17 08:30 Ordered 10 ml FLUSH ASDIRECTED PRN fentaNYL [Sublimaze] Med 06/04/17 08:30 Ordered 50 mcg IVPUSH Q1H PRN Saline Lock Insert [OM.PC] Routine Oth 06/04/17 08:30 Ordered Resuscitation Status Routine Resus Stat 06/04/17 08:30 Ordered Assessment/Plan Comment:: 26-year-old at 38w3d with SROM at unknown time 1. Admit to L&D and initiate routine intrapartum orders 2. Initiate pitocin for augmentation of labor given possible 12+ hours since SROM 3. Patient does desire intrathecal at some point 4. Expectant management. Anticipate Jyothi King MD
[2017-06-04] MEDS ORDERED: fentaNYL 100 MCG/2 ML SDV IVPUSH ONE (10:15)
[2017-06-04] MEDS ORDERED: EPINEPHrine 1 MG/ML SDV ONE (11:18)
[2017-06-04] MEDS ORDERED: fentaNYL 100 MCG/2 ML SDV ONE (11:18)
--- NOTE | 2017-06-04 11:46 | PCM.SN ---
- Free Text/Narrative Note: Intrathecal, sitting position, sterile prep and drape. 1% lidocaine w bicarb for skinwheal to L2 L3 interspace, introducer, 24 ga pencan x 1. POS CSF, neg heme, neg parasthesia. 15 mcg pf Sufenta, 1:1000 pf epiwash, 35 mcg pf Fentanyl , 0.4 ml PF NS and 6 mg of 0.75% PF bupivacaine injected after CSF aspiration. Pt to L lateral position. Procedure time 1120 to 1145
[2017-06-04] MEDS ORDERED: Nalbuphine 20 MG/1 ML Amp IM ONE (11:51)
[2017-06-04] MEDS ORDERED: Simethicone 80 MG Tab.Chew PO PRN (14:55)
[2017-06-04] MEDS ORDERED: Docusate Sodium 100 MG Cap PO PRN (14:55)
[2017-06-04] MEDS ORDERED: Oxytocin 10 Units/1 ML SDV IM PRN (14:55)
[2017-06-04] MEDS ORDERED: Benzocaine/Menthol 20%-0.5% Spray 56 GM Canister TOP PRN (14:55)
--- NOTE | 2017-06-04 14:57 | PCM.DEL ---
L & D Note - General Info Date of Service: 06/04/17 Mother's Due Date: 06/15/17 - Delivery Note Delivery Outcome: Livebirth Infant Delivery Method: Spontaneous Vaginal Delivery-Single Delivery Mode: Vacuum Extraction Presentation: Vertex Nuchal Cord: None Anesthesia Type: Intrathecal Amniotic Fluid Description: Clear Episiotomy Type: None Laceration: None Placenta: Intact, Spontaneous Cord: 3 Vessels Estimated Blood Loss: 200 : Bulb Syringe, Warmed Provider: Jyothi King Score 1 min: 8 Score 5 min: 9 Post Delivery Events: Shoulder Dystocia Delivery Comments (Free Text/Narrative):: 26-year-old at 38 weeks 3 days gestation presented to labor and delivery with spontaneous rupture of membranes at an unknown time. Time of rupture ranged from 6:30 PM the night before to 7 AM this morning. Patient rapidly progressed to 7 cm dilated. She received intrathecal for pain control. She progressed to complete dilation and labored down for a short time. Patient then pushed for approximately 1 hour. Due to maternal fatigue, the decision was made to proceed with vacuum extraction. Patient was informed of benefits and possible risks including but not limited to maternal injury, need for , and distress. Vacuum was applied for approximately 11 minutes. There were no pop-offs. Good progression was noted with each contraction. head delivered and was noted to be rotating. Shoulder dystocia was then noted. Patient was placed in Bon position and suprapubic pressure was applied. After about 10 seconds, the shoulder delivered and the rest of the baby delivered without complication Baby was placed up on mother's chest. Apgars were 8 and 9 at one and 5 minutes respectively. The umbilical cord was clamped x2 and cut. Cord blood was collected. Perineum was then inspected and found to be intact. The placenta delivered approximately 4 minutes later. It was spontaneously delivered and noted to be intact. Afterward, the uterus was determined to be firm. Bleeding was appropriate. Patient tolerated procedure well and there were no immediate competitions. Vacuum Extractor Progress Note - Alternative Labor Strategies Considered Alternative Labor Strategies Considered:: Reports: Yes Strategies Considered:: Reports: Position Changes Used to Facilitate Rotation & Descent, Empty Bladder, Rest Indications Considered:: Reports: Yes Indications:: Reports: Shortening of 2nd Stage for Maternal Benefit - Patient Prepared Patient Prepared:: Reports: Yes Informed Consent:: Reports: Verbal Risks: Reports: Yes Risks Include:: Reports: Laceration, Shoulder Dystocia, Maternal Injury Anesthesia/Analgesia Adequate:: Reports: Yes - Probability of Success High Probability of Success:: Reports: Yes Weight Estimated:: Reports: AGA Patient Diabetic:: Reports: No Pelvis Adequate:: Reports: Yes Asynclitic:: Reports: No - Application Time Maximum Application Time & Number of Pop-Offs Predetermined:: Reports: Yes Type of Vacuum Used:: Reports: Cup: Mushroom type Vacuum Extraction: Successful - Exit Strategy Exit strategy available:: Reports: Yes and resuscitation teams readily available:: Reports: Yes - Patient Data Weight - Most Recent: 104.78 kg Lab Results Last 24 Hours: Laboratory Results - last 24 hr 06/04/17 06/04/17 Range/Units 09:05 13:40 WBC 11.3 H (5.0-10.0) 10^3/uL RBC 4.48 (4.2-5.4) 10^6/uL Hgb 13.8 (12.0-16.0) g/dL Hct 40.3 (37.0-47.0) % MCV 90.0 (80-100) fL MCH 30.8 (27.0-34.0) pg MCHC 34.2 (33.0-35.0) g/dL Plt Count 155 D (150-450) 10^3/uL Urine Opiates Screen Negative (NEGATIVE) Ur Oxycodone Screen Negative (NEGATIVE) Urine Methadone Screen Negative (NEGATIVE) Ur Barbiturates Screen Negative (NEGATIVE) U Tricyclic Antidepress Negative (NEGATIVE) Ur Phencyclidine Scrn Negative (NEGATIVE) Ur Amphetamine Screen Negative (NEGATIVE) U Methamphetamines Scrn Negative (NEGATIVE) Urine MDMA Screen Negative (NEGATIVE) U Benzodiazepines Scrn Negative (NEGATIVE) Urine Cocaine Screen Negative (NEGATIVE) U Marijuana (THC) Screen Positive H (NEGATIVE) Med Orders - Current: Current Medications Acetaminophen (Tylenol) 650 mg PO Q4H PRN PRN Reason: Pain (Mild 1-3) and fever Carboprost Tromethamine (Hemabate Ds) 250 mcg IM ASDIRECTED PRN PRN Reason: HEMORRHAGE Fentanyl (Sublimaze) 50 mcg IVPUSH Q1H PRN PRN Reason: Pain (moderate 4-6) Oxytocin/Sodium Chloride (Pitocin In Ns 30 Unit/500 Ml) 30 unit in 500 mls @ 2 mls/hr IV TITRATE KENTRELL; 2 MUNITS/MIN PRN Reason: Protocol Methylergonovine Maleate (Methergine) 0.2 mg IM ASDIRECTED PRN PRN Reason: Hemorrhage Misoprostol (Cytotec) 800 mcg RECTAL ASDIRECTED PRN PRN Reason: Hemorrhage Sodium Chloride (Saline Flush) 10 ml FLUSH ASDIRECTED PRN PRN Reason: Keep Vein Open Discontinued Medications Epinephrine HCl (Adrenalin) Confirm Administered Dose 1 mg .ROUTE .STK-MED ONE Stop: 06/04/17 11:19 Last Admin: 06/04/17 13:18 Dose: Not Given Fentanyl (Sublimaze) 100 mcg IVPUSH ONETIME ONE Stop: 06/04/17 10:16 Last Admin: 06/04/17 10:15 Dose: 100 mcg Fentanyl (Sublimaze) Confirm Administered Dose 100 mcg .ROUTE .STK-MED ONE Stop: 06/04/17 11:19 Last Admin: 06/04/17 13:18 Dose: Not Given Fentanyl (Sublimaze) 35 mcg ITHECAL .STK-MED ONE Stop: 06/04/17 08:33 Lactated Ringer's (Ringers, Lactated) 500 mls @ 999 mls/hr IV ONETIME ONE Stop: 06/04/17 09:00 Lactated Ringer's (Ringers, Lactated) 1,000 mls @ 125 mls/hr IV ASDIRECTED KENTRELL Last Admin: 06/04/17 10:18 Dose: 125 mls/hr Lidocaine HCl (Xylocaine-Mpf 1%) 10 ml INJECT ASDIRECTED PRN PRN Reason: Perineal Repair Nalbuphine HCl (Nubain) 10 mg IVPUSH Q3H PRN PRN Reason: Pain (moderate 4-6) Nalbuphine HCl (Nubain) 20 mg IM ONETIME ONE Stop: 06/04/17 11:52 Ondansetron HCl (Zofran) 4 mg IV Q4H PRN PRN Reason: Nausea/Vomiting Sodium Bicarbonate (Sodium Bicarbonate 4.2%) Confirm Administered Dose 5 meq .ROUTE .STK-MED ONE Stop: 06/04/17 11:19 Last Admin: 06/04/17 13:18 Dose: Not Given Sufentanil Citrate (Sufenta) Confirm Administered Dose 50 mcg .ROUTE .STK-MED ONE Stop: 06/04/17 11:19 Last Admin: 06/04/17 13:19 Dose: Not Given Sufentanil Citrate (Sufenta) 15 mcg ITHECAL .STK-MED ONE Stop: 06/04/17 08:33 - Problem List & Annotations (1) care in third trimester SNOMED Code(s): 205518880, 64672778, 359492929, 596209597 Code(s): Z34.93 - ENCNTR FOR SUPRVSN OF NORMAL PREG, UNSP, THIRD TRIMESTER Status: Acute Current Visit: Yes (2) Viral hepatitis complicating SNOMED Code(s): 689466042 Code(s): O98.419 - VIRAL HEPATITIS COMPLICATING , UNSP TRIMESTER Status: Acute Current Visit: Yes (3) Not immune to rubella SNOMED Code(s): 014831668 Code(s): Z78.9 - OTHER SPECIFIED HEALTH STATUS Status: Acute Current Visit: Yes (4) Status post vacuum-assisted vaginal delivery SNOMED Code(s): 179233936 Code(s): Z87.42 - PERSONAL HISTORY OF OTH DISEASES OF THE FEMALE GENITAL TRACT Status: Acute Current Visit: Yes - Problem List Review Problem List Initiated/Reviewed/Updated: Yes - My Orders Last 24 Hours: My Active Orders 06/04/17 08:30 Patient Status [ADT] Routine Heart Tones [RC] PER UNIT ROUTINE Notify Provider Vital Signs OB [RC] ASDIRECTED Pump Management, Intrathecal [RC] ASDIRECTED Vital Signs [RC] PER UNIT ROUTINE Acetaminophen [Tylenol] 650 mg PO Q4H PRN Carboprost Tromethamine [Hemabate DS] 250 mcg IM ASDIRECTED PRN Methylergonovine [Methergine] 0.2 mg IM ASDIRECTED PRN Misoprostol [Cytotec] 800 mcg RECTAL ASDIRECTED PRN Oxytocin/Normal Saline [Pitocin in NS 30 UNIT/500 ML] 30 unit in 500 ml IV TITRATE Sodium Chloride 0.9% [Saline Flush] 10 ml FLUSH ASDIRECTED PRN fentaNYL [Sublimaze] 50 mcg IVPUSH Q1H PRN Saline Lock Insert [OM.PC] Routine Resuscitation Status Routine 06/04/17 14:55 Up ad Makenzie [RC] ASDIRECTED Vital Signs [RC] PFP Benzocaine/Menthol [D[facility] [place]] See Dose Instructions TOP Q4H PRN Docusate Sodium [Colace] 100 mg PO BID PRN Ibuprofen [Motrin] 800 mg PO Q8H PRN Oxytocin [Pitocin] 10 unit IM ONETIME PRN Simethicone 80 mg PO Q4H PRN Sodium Chloride 0.9% [Saline Flush] 10 ml FLUSH ASDIRECTED PRN Assess Lochia [WOMSER] Per Unit Routine Assess Uterine Involution [WOMSER] Per Unit Routine Breast Pump [WOMSER] Per Unit Routine Ice Therapy [OM.PC] Per Unit Routine Perineal Care [OM.PC] Per Unit Routine Saline Lock Insert [OM.PC] Urgent Sitz Bath [OM.PC] Per Unit Routine 06/04/17 Dinner Regular Diet [DIET] 06/05/17 09:00 Vit with Ca/FA/Iron [ Plus Iron] 1 each PO DAILY - Assessment Assessment:: 26-year-old now status post VAVD with 10 second shoulder dystocia at 38w3d 1. Initiate orders 2. Plans to bottlefeed 3. Anticipate discharge 06/06/17 Jyothi King MD - Plan Plan:: 26-year-old at 38w3d with SROM at unknown time 1. Admit to L&D and initiate routine intrapartum orders 2. Initiate pitocin for augmentation of labor given possible 12+ hours since SROM 3. Patient does desire intrathecal at some point 4. Expectant management. Anticipate Jyothi King MD
[2017-06-04] MEDS ORDERED: hydrOXYzine HCl 25 MG Tab PO PRN (15:04)
[2017-06-04] MEDS: Ibuprofen 800 MG Tab PO PRN (15:53)
[2017-06-04] MEDS: Acetaminophen 325 MG Tab PO PRN (19:48)
[2017-06-04] MEDS ORDERED: Acetaminophen/HYDROcodone 325-10 MG Tab PO PRN (21:28)
[2017-06-04] MEDS: Methylergonovine 0.2 MG Tab PO SCH (23:02)
[2017-06-05] MEDS: Ibuprofen 800 MG Tab PO PRN ×2 (00:01→09:36)
[2017-06-05] MEDS ORDERED: FLUoxetine 10 MG Cap PO SCH (09:00)
[2017-06-05] MEDS ORDERED: Prenatal Multivitamin with Calcium/Folic Acid/Iron Tab PO SCH (09:00)
[2017-06-05] MEDS ORDERED: FLUOXETINE 10 MG PO SCH (09:00)
[2017-06-05] MEDS: Methylergonovine 0.2 MG Tab PO SCH ×2 (09:35→14:22)
[2017-06-05 09:48] VITALS: BP 124/80
--- NOTE | 2017-06-05 11:45 | PCM.DCSUM1 ---
Discharge Summary - Hospital Course Free Text/Narrative:: 26-year-old female PPD#1 status post VAVD at 38w3d - Discharge Data Discharge Date: 06/05/17 Discharge Disposition: Home, Self-Care 01 Condition: Good - Discharge Diagnosis/Problem(s) (1) care in third trimester SNOMED Code(s): 889305753, [id number], [id number], 733822977 ICD Code: Z34.93 - ENCNTR FOR SUPRVSN OF NORMAL PREG, UNSP, THIRD TRIMESTER Status: Acute Current Visit: Yes (2) Viral hepatitis complicating SNOMED Code(s): 786029215 ICD Code: O98.419 - VIRAL HEPATITIS COMPLICATING , UNSP TRIMESTER Status: Acute Current Visit: Yes (3) Not immune to rubella SNOMED Code(s): 361697631 ICD Code: Z78.9 - OTHER SPECIFIED HEALTH STATUS Status: Acute Current Visit: Yes (4) Status post vacuum-assisted vaginal delivery SNOMED Code(s): 085696685 ICD Code: Z87.42 - PERSONAL HISTORY OF OTH DISEASES OF THE FEMALE GENITAL TRACT Status: Acute Current Visit: Yes - Patient Summary/Data Operative Procedure(s) Performed: Vacuum assisted vaginal delivery Complications: None Consults: None Labs Pending at D/C: None Recommended Follow-up Testing/Procedures: None Planned Operative Procedure(s) after DC: None Hospital Course: Unremarkable. (Please see subjective section) - Patient Instructions Diet: Usual Diet as Tolerated Activity: Apply Ice, As Tolerated, No Lifting Over 20 Pounds Driving: May Drive Today Showering/Bathing: May Shower Notify Provider of: Fever, Increased Pain, Nausea and/or Vomiting - Discharge Plan Home Medications: Home Meds Albuterol [Ventolin HFA] 1 puff INH Q4HR PRN 04/17/14 [History] FLUoxetine [PROzac] 40 mg PO DAILY 08/03/15 [History] Vits #93/Iron Fum/FA [ Formula Tablet] 1 each PO DAILY [History] Acetaminophen [Tylenol] 650 mg PO Q4H PRN tablet 06/05/17 [Rx] Docusate Sodium [Colace] 100 mg PO BID PRN cap 06/05/17 [Rx] Ibuprofen [IJD: Ibuprofen] 800 mg PO Q8H PRN tablet 06/05/17 [Rx] - Discharge Summary/Plan Comment DC Time >30 min.: No Discharge Summary/Plan Comment: Discharge home today if baby is able to be discharged. Follow-up in 6-8 weeks for visit. Reasons to return sooner or present to the ED were reviewed. Patient voiced her understanding, and all questions were answered. Jyothi King MD - General Info Date of Service: 06/05/17 Subjective Update: Patient is doing well. Tolerating a general diet. Ambulating without difficulty. No fever or chills. Voiding without difficulty. Passing gas. Functional Status: Reports: Pain Controlled, Tolerating Diet, Ambulating, Urinating. Denies: New Symptoms - Review of Systems General: Reports: No Symptoms HEENT: Reports: No Symptoms Pulmonary: Reports: No Symptoms Cardiovascular: Reports: No Symptoms Gastrointestinal: Reports: No Symptoms Genitourinary: Reports: No Symptoms 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: Reports: No Symptoms Skin: Reports: No Symptoms Neurological: Reports: No Symptoms - Patient Data Vitals - Most Recent: Last Vital Signs Temp 37.0 C 06/05/17 08:00 Pulse 79 06/05/17 08:00 Resp 18 06/05/17 08:00 BP 124/80 06/05/17 08:00 Pulse Ox 99 06/05/17 08:00 Weight - Most Recent: 104.78 kg I&O - Last 24 hours: Intake & Output 06/04/17 06/05/17 06/05/17 22:59 06:59 14:59 Intake Total 500 Balance 500 Lab Results - Last 24 hrs: Laboratory Results - last 24 hr 06/04/17 Range/Units 13:40 Urine Opiates Screen Negative (NEGATIVE) Ur Oxycodone Screen Negative (NEGATIVE) Urine Methadone Screen Negative (NEGATIVE) Ur Barbiturates Screen Negative (NEGATIVE) U Tricyclic Antidepress Negative (NEGATIVE) Ur Phencyclidine Scrn Negative (NEGATIVE) Ur Amphetamine Screen Negative (NEGATIVE) U Methamphetamines Scrn Negative (NEGATIVE) Urine MDMA Screen Negative (NEGATIVE) U Benzodiazepines Scrn Negative (NEGATIVE) Urine Cocaine Screen Negative (NEGATIVE) U Marijuana (THC) Screen Positive H (NEGATIVE) Med Orders - Current: Current Medications Acetaminophen (Tylenol) 650 mg PO Q4H PRN PRN Reason: Pain (Mild 1-3) and fever Last Admin: 06/04/17 19:48 Dose: 650 mg Hydrocodone Bitart/Acetaminophen ([place] 325-10 Mg) 1 tab PO ONETIME PRN PRN Reason: Pain Last Admin: 06/04/17 23:02 Dose: 1 tab Benzocaine/Menthol (Dermoplast Pain Relief [place]) 0 gm TOP Q4H PRN PRN Reason: Perineal comfort measures Last Admin: 06/04/17 19:56 Dose: 1 applic Carboprost Tromethamine (Hemabate Ds) 250 mcg IM ASDIRECTED PRN PRN Reason: HEMORRHAGE Docusate Sodium (Colace) 100 mg PO BID PRN PRN Reason: Constipation Last Admin: 06/04/17 19:48 Dose: 100 mg Fentanyl (Sublimaze) 50 mcg IVPUSH Q1H PRN PRN Reason: Pain (moderate 4-6) Fluoxetine HCl (Prozac) 40 mg PO DAILY KENTRELL Last Admin: 06/05/17 09:35 Dose: 40 mg Hydroxyzine HCl (Atarax) 50 mg PO BID PRN PRN Reason: Itching Last Admin: 06/04/17 15:54 Dose: 50 mg Oxytocin/Sodium Chloride (Pitocin In Ns 30 Unit/500 Ml) 30 unit in 500 mls @ 2 mls/hr IV TITRATE KENTRELL; 2 MUNITS/MIN PRN Reason: Protocol Last Titration: 06/04/17 17:55 Dose: Infused Ibuprofen (Motrin) 800 mg PO Q8H PRN PRN Reason: Mild Pain or Fever Last Admin: 06/05/17 09:36 Dose: 800 mg Methylergonovine Maleate (Methergine) 0.2 mg IM ASDIRECTED PRN PRN Reason: Hemorrhage Methylergonovine Maleate (Methergine) 0.2 mg PO TID KENTRELL Last Admin: 06/05/17 09:35 Dose: 0.2 mg Misoprostol (Cytotec) 800 mcg RECTAL ASDIRECTED PRN PRN Reason: Hemorrhage Oxytocin (Pitocin) 10 unit IM ONETIME PRN PRN Reason: Bleeding Prenat Multivit/Vina/Iron/Folic Ac ( Plus Iron) 1 each PO DAILY KENTRELL Last Admin: 06/05/17 09:35 Dose: 1 each Simethicone (Simethicone) 80 mg PO Q4H PRN PRN Reason: Gas Sodium Chloride (Saline Flush) 10 ml FLUSH ASDIRECTED PRN PRN Reason: Keep Vein Open Sodium Chloride (Saline Flush) 10 ml FLUSH ASDIRECTED PRN PRN Reason: Keep Vein Open Discontinued Medications Epinephrine HCl (Adrenalin) Confirm Administered Dose 1 mg .ROUTE .STK-MED ONE Stop: 06/04/17 11:19 Last Admin: 06/04/17 13:18 Dose: Not Given Fentanyl (Sublimaze) 100 mcg IVPUSH ONETIME ONE Stop: 06/04/17 10:16 Last Admin: 06/04/17 10:15 Dose: 100 mcg Fentanyl (Sublimaze) Confirm Administered Dose 100 mcg .ROUTE .STK-MED ONE Stop: 06/04/17 11:19 Last Admin: 06/04/17 13:18 Dose: Not Given Fentanyl (Sublimaze) 35 mcg ITHECAL .STK-MED ONE Stop: 06/04/17 08:33 Fluoxetine HCl (Prozac) 20 mg PO DAILY [facility] Lactated Ringer's (Ringers, Lactated) 500 mls @ 999 mls/hr IV ONETIME ONE Stop: 06/04/17 09:00 Last Admin: 06/04/17 15:56 Dose: Not Given Lactated Ringer's (Ringers, Lactated) 1,000 mls @ 125 mls/hr IV ASDIRECTED KENTRELL Last Admin: 06/04/17 10:18 Dose: 125 mls/hr Lidocaine HCl (Xylocaine-Mpf 1%) 10 ml INJECT ASDIRECTED PRN PRN Reason: Perineal Repair Nalbuphine HCl (Nubain) 10 mg IVPUSH Q3H PRN PRN Reason: Pain (moderate 4-6) Nalbuphine HCl (Nubain) 20 mg IM ONETIME ONE Stop: 06/04/17 11:52 Last Admin: 06/04/17 09:40 Dose: 20 mg Ondansetron HCl (Zofran) 4 mg IV Q4H PRN PRN Reason: Nausea/Vomiting Sodium Bicarbonate (Sodium Bicarbonate 4.2%) Confirm Administered Dose 5 meq .ROUTE .STK-MED ONE Stop: 06/04/17 11:19 Last Admin: 06/04/17 13:18 Dose: Not Given Sufentanil Citrate (Sufenta) Confirm Administered Dose 50 mcg .ROUTE .STK-MED ONE Stop: 06/04/17 11:19 Last Admin: 06/04/17 13:19 Dose: Not Given Sufentanil Citrate (Sufenta) 15 mcg ITHECAL .STK-MED ONE Stop: 06/04/17 08:33 - Exam General: Reports: Alert, Oriented HEENT: Reports: Pupils Equal, Pupils Reactive Lungs: Reports: Clear to Auscultation, Normal Respiratory Effort Cardiovascular: Reports: Regular Rate, Regular Rhythm, No Murmurs GI/Abdominal Exam: Soft, Non-Tender Extremities: Pedal Edema (1+ to lower extremities bilaterally) Skin: Reports: Warm, Dry, Intact *Q Meaningful Use (DIS) - VTE *Q VTE Criteria *Q: - Stroke *Q Stroke Criteria *Q: - AMI *Q AMI Criteria *Q:
[2017-06-05] MEDS: Acetaminophen 325 MG Tab PO PRN (12:09)
[2017-06-05] MEDS ORDERED: Measles, Mumps & Rubella Vaccine 0.5 ML SDV SUBCUT ONE (15:32)
== END 2017-06-05 17:23 | disposition home or self-care (01) | DRG 774 ==
LOC: DL.OBCHECK 07:37 → DL.OB 08:31 → OBSVTOIN 14:43 → EEVIPCON 14:43
PROVIDERS: ADMIT Family Medicine; ATTEND Family Medicine
PROC: 10D07Z6 Extraction of Products of Conception, Vacuum, Via Natural or Artificial Opening (ICD-10-PCS; principal; 2017-06-04)
PROC: 00HU33Z Insertion of Infusion Device into Spinal Canal, Percutaneous Approach (ICD-10-PCS; 2017-06-04)
PROC: 3E0R3BZ Introduction of Anesthetic Agent into Spinal Canal, Percutaneous Approach (ICD-10-PCS; 2017-06-04)
PROC: 3E0234Z Introduction of Serum, Toxoid and Vaccine into Muscle, Percutaneous Approach (ICD-10-PCS; 2017-06-05)
DX: O98.413 Viral hepatitis complicating pregnancy, third trimester (principal); O99.324 Drug use complicating childbirth; O75.81 Maternal exhaustion complicating labor and delivery; O66.0 Obstructed labor due to shoulder dystocia; Z3A.38 38 weeks gestation of pregnancy; Z37.0 Single live birth; F12.90 Cannabis use, unspecified, uncomplicated; Z23 Encounter for immunization
CPT/HCPCS: 01967; 36415; 59409; 59414; 80305; 85027; 90471; 90707; A9270-GY; J2300; J2590; J3010; J7120

== ENCOUNTER 2019-09-02 16:32 | Emergency (ER) | payer MEDICAID, OTHER ==
[2019-09-02] MEDS ORDERED: Cyclobenzaprine 10 MG Tab PO ONE (16:33)
[2019-09-02 16:43] VITALS: BP 128/79; PULSE 95
--- NOTE | 2019-09-02 17:26 | EDM.PDOC ---
Scribed by Savi Lin 09/02/19 1726 for Silas Wang NP ED HPI GENERAL MEDICAL PROBLEM - General Chief Complaint: Upper Extremity Injury/Pain Stated Complaint: RIGHT WRIST POSS BROKEN, LEFT SHOULDER FELL Time Seen by Provider: 09/02/19 16:47 Source of Information: Reports: Patient, RN, RN Notes Reviewed History Limitations: Reports: No Limitations - History of Present Illness INITIAL COMMENTS - FREE TEXT/NARRATIVE: Patient presents to ER with complaints of right wrist pain x1 week and left shoulder pain x3 days. Patient reports she fell 1 week ago and does not remember if her right hand was out-stretched or not. She has been working for the past 1 week in the [employer] and using that wrist. Patient reports 3 days ago she was picking up her son and felt sharp pain in her left shoulder. Pain has been constant since then and she rates it as a 10/10. She has been working as usual. She reports she applied ice to her wrist and heat to her left shoulder with little relief. She has been taking 1000 mg of Ibuprofen as needed for pain. Denies any previous injury. Onset: Gradual Duration: Getting Worse Location: Reports: Upper Extremity, Left, Upper Extremity, Right Severity: Mild - Related Data Allergies Allergy/AdvReac Type Severity Reaction Status Date / Time erythromycin lactobionate Allergy Hives Verified 09/02/19 16:44 [From Erythrocin] Penicillins Allergy Rash Verified 09/02/19 16:44 Home Meds: Home Meds Albuterol [Ventolin HFA] 1 puff INH Q4HR PRN 04/17/14 [History] FLUoxetine [PROzac] 60 mg PO DAILY 08/03/15 [History] Acetaminophen [Tylenol] 650 mg PO Q4H PRN tablet 06/05/17 [Rx] busPIRone [Buspar] 15 mg PO DAILY 04/21/18 [History] Ibuprofen [IJD: Ibuprofen] 600 mg PO Q8H PRN 02/21/19 [History] Past Medical History - Past Health History Medical/Surgical History: Denies Medical/Surgical History HEENT History: Reports: None Cardiovascular History: Reports: None Respiratory History: Reports: Asthma Gastrointestinal History: Reports: None Other Gastrointestinal History: Laparoscopy, May 1970 Genitourinary History: Reports: None PIPELAYER History: Reports: 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 History: Reports: None Neurological History: Reports: None Other Neuro History: disc degeneration Psychiatric History: Reports: Anxiety, Depression Endocrine/Metabolic History: Reports: None Hematologic History: Reports: None Immunologic History: Reports: None Oncologic (Cancer) History: Reports: None Dermatologic History: Reports: None - Infectious Disease History Infectious Disease History: Reports: None - Past Surgical History Head Surgeries/Procedures: Reports: None HEENT Surgical History: Reports: Tonsillectomy GI Surgical History: Reports: Other (See Below) Other GI Surgeries/Procedures: laproscopy in 2014 Other Female Surgeries/Procedures: ovarian cysts Neurological Surgical History: Reports: None Social & Family History - Family History Family Medical History: Noncontributory - Caffeine Use Caffeine Use: Reports: Coffee, Soda - Living Situation & Occupation Living situation: Reports: with Family Occupation: Employed Review of Systems - Review of Systems Review Of Systems: Comprehensive ROS is negative, except as noted in HPI. ED EXAM, GENERAL - Physical Exam Exam: See Below Exam Limited By: No Limitations General Appearance: Alert, WD/WN, No Apparent Distress Extremities: Normal Inspection, Normal Range of Motion (of right wrist and left shoulder with little discomfort. Negative for scaphoid tenderness. No swelling or bruising noted. ), Normal Capillary Refill Neurological: Alert, Oriented Psychiatric: Normal Affect Skin Exam: Warm, Dry Course - Vital Signs Last Recorded V/S: Last Vital Signs Temp 97.4 F 09/02/19 16:42 Pulse 95 09/02/19 16:42 Resp 18 09/02/19 16:42 BP 128/79 09/02/19 16:42 Pulse Ox 99 09/02/19 16:42 - Radiology Interpretation Free Text/Narrative:: Left shoulder x-ray: Negative limited left shoulder x-ray. See rad report. Right wrist x-ray: Negative right wrist x-rays. See rad report. - Re-Assessments/Exams Free Text/Narrative Re-Assessment/Exam: Reviewed exam, physical findings and x-rays. Recommended ice and heat every 20 minutes interchangeably. Tylenol or Ibuprofen p.r.n. for pain. Follow up with PCP. Wrist splint given. Departure - Departure Time of Disposition: 17:23 Disposition: Home, Self-Care 01 Condition: Good Clinical Impression: Left shoulder strain Qualifiers: Encounter type: initial encounter Qualified Code(s): S46.912A - Strain of unspecified muscle, fascia and tendon at shoulder and upper arm level, left arm , initial encounter Left wrist sprain Qualifiers: Encounter type: initial encounter Qualified Code(s): S63.502A - Unspecified sprain of left wrist, initial encounter - Discharge Information Instructions: Shoulder Sprain, Wrist Sprain, Adult Forms: ED Department Discharge Additional Instructions: Recommended ice and heat every 20 minutes interchangeably. Tylenol or Ibuprofen p.r.n. for pain. Follow up with PCP. Wear wrist splint. Sepsis Event Note - Evaluation Sepsis Screening Result: No Definite Risk - Focused Exam Vital Signs: Vital Signs Temp Pulse Resp BP Pulse Ox 09/02/19 16:42 97.4 F 95 18 128/79 99 Date Exam was Performed: 09/02/19 Time Exam was Performed: 17:26 I have read and agree with the documentation that has been completed regarding this visit. By signing this record, I attest that the documentation was completed in my physical presence and is an accurate record of the encounter.
[2019-09-02] MEDS ORDERED: Cyclobenzaprine 10 MG Tab ONE (17:28)
== END 2019-09-02 17:32 | disposition home or self-care (01) ==
LOC: DL.ED 16:32
DX: S63.502A Unspecified sprain of left wrist, initial encounter (principal); S46.912A Strain of unspecified muscle, fascia and tendon at shoulder and upper arm level, left arm, initial encounter; Z88.0 Allergy status to penicillin; Z88.1 Allergy status to other antibiotic agents; Z79.899 Other long term (current) drug therapy; W19.XXXA Unspecified fall, initial encounter
CPT/HCPCS: 73020; 73110; 99283; A9270

== ENCOUNTER 2021-08-21 05:56 | Emergency (ER) | payer MEDICAID | END 2021-08-21 06:05 | disposition other institution (70) | LOC: DL.ED 05:56 | DX: Z53.21 Procedure and treatment not carried out due to patient leaving prior to being seen by health care provider (principal) ==

== ENCOUNTER 2022-05-31 05:03 | Inpatient (IN) | payer MEDICAID ==
[2022-05-31] MEDS ORDERED: Sodium Chloride 0.9% 10 ML Syringe FLUSH PRN (05:51)
[2022-05-31] MEDS ORDERED: Citric Acid/Sodium Citrate Solution 30 ML Cup PO ONE (05:51)
[2022-05-31] MEDS ORDERED: Carboprost Tromethamine 250 MCG/1 ML Amp IM PRN ×2 (05:51→16:10)
[2022-05-31] MEDS ORDERED: Gentamicin 500 MG in Sodium Chloride 0.9% 100 ML IV ONE ×2 (05:51→06:30)
[2022-05-31] MEDS ORDERED: Methylergonovine 0.2 MG Tab PO PRN (05:51)
[2022-05-31] MEDS ORDERED: Oxytocin 10 Units/1 ML SDV IM PRN (05:51)
[2022-05-31] MEDS ORDERED: Oxytocin/Normal Saline 30 UNIT/500 ML BAG IV SCH (06:00)
[2022-05-31] MEDS ORDERED: Lactated Ringers 1,000 ML IV SCH ×3 (06:00→16:10)
[2022-05-31] MEDS ORDERED: Clindamycin in 0.9 % Sod Chlor 900 MG in Premix Bag 1 BAG IV ONE ×4 (06:03→06:30)
[2022-05-31] MEDS ORDERED: Oxytocin 10 Units/1 ML SDV ONE (06:13)
[2022-05-31] MEDS ORDERED: Oxytocin/Normal Saline 60 UNIT/1,000 ML BAG ONE (06:14)
[2022-05-31] MEDS ORDERED: Methylergonovine 0.2 MG/1 ML Amp ONE (06:14)
[2022-05-31] MEDS ORDERED: Vasopressin 20 Units/1 ML MDV ONE (06:14)
[2022-05-31] MEDS ORDERED: Morphine PF 10 MG/10 ML SDV IT ONE (06:30)
[2022-05-31] MEDS ORDERED: EPINEPHrine 1 MG/ML SDV ONE (06:30)
[2022-05-31] MEDS ORDERED: Ondansetron 4 MG/2 ML SDV IV ONE (06:30)
[2022-05-31] MEDS ORDERED: Ketorolac 30 MG/ML SDV IVPUSH ONE (06:30)
[2022-05-31] MEDS ORDERED: ePHEDrine 50 MG/ML SDV IV ONE (06:30)
[2022-05-31] MEDS ORDERED: Lactated Ringers 1,000 ML IV ONE (06:30)
[2022-05-31] MEDS ORDERED: Sodium Chloride 0.9% 10 ML Syringe IV ONE (06:30)
[2022-05-31] MEDS ORDERED: Dexmedetomidine 200 MCG/2 ML SDV ONE (06:30)
[2022-05-31] MEDS ORDERED: Oxytocin/Normal Saline 30 UNIT/500 ML BAG IV ONE (06:30)
[2022-05-31] MEDS ORDERED: Promethazine 25 MG/ML SDV ONE (06:30)
[2022-05-31] MEDS ORDERED: Phenylephrine 1% 10 MG/ML SDV IV ONE (06:30)
[2022-05-31] MEDS ORDERED: Dexamethasone 4 MG/ML SDV IV ONE (06:30)
[2022-05-31] MEDS ORDERED: Albuterol 6.7 GM Inhaler INH PRN (07:47)
[2022-05-31] MEDS ORDERED: Non-Formulary Medication 1 Each (Buprenorphine Hcl/Naloxone Hcl 1 EACH Tab.Subl) SL SCH (08:00)
[2022-05-31] MEDS ORDERED: Succinylcholine 200 MG/10 ML MDV ONE (08:05)
[2022-05-31] MEDS ORDERED: Ondansetron 4 MG/2 ML SDV IVPUSH PRN ×2 (08:09→16:10)
[2022-05-31] MEDS ORDERED: Promethazine 25 MG/ML SDV IM PRN (08:09)
[2022-05-31] MEDS ORDERED: ePHEDrine 50 MG/ML SDV IVPUSH PRN ×2 (08:09→16:10)
[2022-05-31] MEDS ORDERED: Naloxone 2 MG/2 ML Syringe IVPUSH PRN ×2 (08:09→16:10)
[2022-05-31] MEDS ORDERED: Lactated Ringers 500 ML IV SCH ×2 (08:15)
[2022-05-31] MEDS ORDERED: Sodium Chloride 0.9% 10 ML Syringe FLUSH SCH (09:00)
[2022-05-31 11:58] LABS: ANION GAP 7.8 mEq/L (7-13)
[2022-05-31] MEDS ORDERED: Acetaminophen 500 MG Tab PO PRN (12:37)
[2022-05-31] MEDS ORDERED: Ketorolac 30 MG/ML SDV IVPUSH PRN (13:23)
[2022-05-31] MEDS ORDERED: Misoprostol 400 MCG (4 X 100 MCG TAB) RECTAL PRN (16:10)
[2022-05-31] MEDS ORDERED: Methylergonovine 0.2 MG/1 ML Amp IM PRN (16:10)
[2022-05-31] MEDS ORDERED: diphenhydrAMINE 50 MG/ML SDV IVPUSH PRN (16:10)
[2022-05-31] MEDS ORDERED: Ketorolac 30 MG/ML SDV IVPUSH SCH (16:10)
[2022-05-31] MEDS ORDERED: Buprenorphine 8 MG Tab.SL SL ONE ×2 (16:47→21:00)
[2022-05-31] MEDS: Prenatal Multivitamin with Calcium/Folic Acid/Iron Tab PO SCH (17:04)
[2022-05-31] MEDS: Simethicone 80 MG Tab.Chew PO SCH ×3 (17:06→21:12)
[2022-05-31] MEDS: FLUoxetine 10 MG Cap PO SCH (19:08)
[2022-05-31] MEDS: Acetaminophen 500 MG Tab PO PRN (19:16)
[2022-05-31] MEDS: Ketorolac 30 MG/ML SDV IVPUSH SCH (19:17)
[2022-05-31] MEDS: Nicotine 21 MG/24 Hr Patch TRDERM SCH (20:12)
[2022-05-31] MEDS ORDERED: Buprenorphine 8 MG Tab.SL SL SCH (21:00)
[2022-05-31] MEDS: oxyCODONE 5 MG Tab PO PRN (22:18)
[2022-05-31] MEDS: Docusate Sodium 100 MG Cap PO PRN (22:18)
[2022-06-01] MEDS: Ketorolac 30 MG/ML SDV IVPUSH SCH (01:44)
[2022-06-01] MEDS: oxyCODONE 5 MG Tab PO PRN ×4 (01:48→19:47)
[2022-06-01] MEDS: Acetaminophen 500 MG Tab PO PRN ×3 (06:00→19:47)
[2022-06-01] MEDS ORDERED: BUPRENORPHINE SL SCH ×2 (09:00)
[2022-06-01] MEDS ORDERED: NALOXONE SL SCH ×2 (09:00)
[2022-06-01] MEDS ORDERED: Buprenorphine 8 MG Tab.SL SL SCH ×3 (09:00→21:00)
[2022-06-01] MEDS ORDERED: HYDROmorphone 0.5 MG/0.5 ML Syringe IVPUSH ONE (09:32)
[2022-06-01] MEDS: Docusate Sodium 100 MG Cap PO PRN ×2 (09:49→21:06)
[2022-06-01] MEDS: Simethicone 80 MG Tab.Chew PO SCH ×4 (09:49→21:06)
[2022-06-01] MEDS: Prenatal Multivitamin with Calcium/Folic Acid/Iron Tab PO SCH (09:50)
[2022-06-01] MEDS: Ibuprofen 800 MG Tab PO PRN ×2 (09:50→17:52)
[2022-06-01] MEDS: FLUoxetine 10 MG Cap PO SCH (09:51)
[2022-06-01] MEDS: Nicotine 21 MG/24 Hr Patch TRDERM SCH (09:55)
[2022-06-01] MEDS: Buprenorphine 8 MG Tab.SL SL SCH ×3 (11:03→21:06)
[2022-06-02] MEDS: oxyCODONE 5 MG Tab PO PRN ×2 (05:40→09:38)
[2022-06-02] MEDS: Acetaminophen 500 MG Tab PO PRN (05:40)
[2022-06-02] MEDS: Ibuprofen 800 MG Tab PO PRN (05:40)
[2022-06-02] MEDS: FLUoxetine 10 MG Cap PO SCH (08:41)
[2022-06-02] MEDS: Prenatal Multivitamin with Calcium/Folic Acid/Iron Tab PO SCH (08:41)
[2022-06-02] MEDS: Simethicone 80 MG Tab.Chew PO SCH (08:41)
[2022-06-02] MEDS: Nicotine 21 MG/24 Hr Patch TRDERM SCH (08:43)
[2022-06-02] MEDS: Docusate Sodium 100 MG Cap PO PRN (08:43)
[2022-06-02] MEDS: Buprenorphine 8 MG Tab.SL SL SCH (08:43)
[2022-06-02 09:01] VITALS: BP 128/72; PULSE 83
== END 2022-06-02 09:45 | disposition home or self-care (01) | DRG 786 ==
LOC: DL.OBCHECK 05:03 → DL.OB 05:51 → OBSVTOIN 06:50
PROVIDERS: ADMIT Obstetrics & Gynecology; ATTEND Obstetrics & Gynecology
PROC: 10D00Z1 Extraction of Products of Conception, Low, Open Approach (ICD-10-PCS; principal; 2022-05-31)
DX: O32.8XX1 Maternal care for other malpresentation of fetus, fetus 1 (principal); O60.14X0 Preterm labor third trimester with preterm delivery third trimester, not applicable or unspecified; O32.8XX2 Maternal care for other malpresentation of fetus, fetus 2; O30.043 Twin pregnancy, dichorionic/diamniotic, third trimester; Z37.2 Twins, both liveborn; Z20.822 Contact with and (suspected) exposure to COVID-19; O99.52 Diseases of the respiratory system complicating childbirth; J45.909 Unspecified asthma, uncomplicated; O99.344 Other mental disorders complicating childbirth; F41.9 Anxiety disorder, unspecified; F32.A Depression, unspecified; Z86.16 Personal history of COVID-19; Z3A.34 34 weeks gestation of pregnancy; Z28.9 Immunization not carried out for unspecified reason
CPT/HCPCS: 01961; 36415; 51701; 80053; 82570; 84156; 85025; 85027; 86850; 86900; 86901; A9270-GY; J0171; J0330; J1100; J1170; J1200; J1580; J1885; J2270; J2370; J2405; J2550; J2590; J3490; J7120; U0002

== ENCOUNTER 2023-07-24 11:37 | Emergency (ER) | payer MEDICAID ==
[2023-07-24 13:00] VITALS: BP 144/87; PULSE 82
[2023-07-24] MEDS ORDERED: Sodium Chloride 0.9% 10 ML Syringe FLUSH PRN (13:00)
[2023-07-24 13:41] LABS: BASOPHILS PERCENT AUTO 0.4 % (0.0-1.0); HEMATOCRIT 44.3 % (37.0-47.0); LYMPHOCYTES PERCENT AUTO 32.1 % (20.5-50.1); MEAN CORPUSCULAR HEMOGLOBIN 31.9 pg (27.0-34.0); MEAN CORPUSCULAR HGB CONC 33.9 g/dL (33.0-35.0); MEAN CORPUSCULAR VOLUME 94.3 fL (80-100); MONOCYTES PERCENT AUTO 7.3 % (2-8); NEUTROPHILS PERCENT AUTO 54.2 % (42.2-75.2); PLATELET COUNT,PLT 190 10^3/uL (150-450); WHITE BLOOD CELL COUNT,WBC 6.7 10^3/uL (5.0-10.0)
[2023-07-24 13:56] LABS: PROTHROMBIN TIME 10.4 SEC (9.0-12.0)
[2023-07-24 14:07] LABS: ALBUMIN 3.2 g/dL (3.4-5.0); BILIRUBIN TOTAL 0.7 mg/dL (0.2-1.0); BUN/CREATININE RATIO 15.6 (No establ ref range); CALCIUM 8.6 mg/dL (8.5-10.1); CREATININE 0.9 mg/dL (0.55-1.02); EST CRCL DRUG DOSING (CG) 66.46 mL/min; PROTEIN TOTAL,TP 8.2 g/dL (6.4-8.2)
[2023-07-24 14:12] LABS: A/G RATIO 0.64
== END 2023-07-24 14:25 | disposition home or self-care (01) ==
LOC: DL.ED 11:37
DX: K76.9 Liver disease, unspecified (principal); J45.909 Unspecified asthma, uncomplicated; Z88.0 Allergy status to penicillin; Z88.1 Allergy status to other antibiotic agents; Z86.16 Personal history of COVID-19
CPT/HCPCS: 36415; 80053; 83690; 85025; 85610; 99283; 99284